=== PATIENT | female | born 1955 | race Caucasian/White ===

== ENCOUNTER → 2016-04-27 | Outpatient (REF) | payer BC | END | disposition home or self-care (01) | LOC: M SFHCPLAZ 14:16 | PROVIDERS: ATTEND Nurse Practitioner Family | DX: R10.9 Unspecified abdominal pain (principal) ==

== ENCOUNTER → 2016-04-27 | Outpatient (CLI) | payer BC ==
[2016-04-27 15:19] LABS: BASO % 0.4 % (0.0-1.0); EOS # 0.5 K/mm3 (0.0-0.50); EOS % 5.8 % (0.0-3.0); LARGE UNSTAINED CELL # 0.3 K/mm3 (0.0-0.4); LARGE UNSTAINED CELL % 2.8 % (0.0-4.0); LYMPH # 2.5 K/mm3 (1.5-4.5); LYMPH % 25.2 % (24.0-44.0); MEAN CORPUSCULAR HGB CONC 33.6 g/dl (32.0-36.5); MEAN CORPUSCULAR VOLUME 98.3 fl (80.0-96.0); MONO # 0.5 K/mm3 (0.0-0.8); MONO % 5.9 % (0.0-5.0); NEUTROPHILS # 5.4 K/mm3 (1.8-7.7); PLATELET COUNT, AUTOMATED 336 k/mm3 (150-450); RED CELL DISTRIBUTION WIDTH 13.1 % (11.5-14.5)
[2016-04-27 15:34] LABS: ALBUMIN 3.5 GM/DL (3.2-5.2); ALBUMIN/GLOBULIN RATIO 0.95 (1.00-1.93); ALKALINE PHOSPHATASE 87 U/L (45-117); ALT/SGPT 34 U/L (12-78); ANION GAP 8 MEQ/L (8-16); AST/SGOT 27 U/L (15-37); BILIRUBIN,TOTAL 0.3 MG/DL (0.2-1.0); BLOOD UREA NITROGEN 21 MG/DL (7-18); CALCIUM LEVEL 9.4 MG/DL (8.5-10.1); CARBON DIOXIDE LEVEL 31 MEQ/L (21-32); CHLORIDE LEVEL 104 MEQ/L (98-107); CREATININE FOR GFR 0.69 MG/DL (0.55-1.02); GLOMERULAR FILTRATION RATE > 60.0 (>51); GLUCOSE, FASTING 96 MG/DL (70-105); POTASSIUM SERUM 4.3 MEQ/L (3.5-5.1); SODIUM LEVEL 143 MEQ/L (136-145); TOTAL PROTEIN 7.2 GM/DL (6.4-8.2)
--- NOTE | 2016-04-27 15:50 | REP ---
Clinical: Right lower quadrant pain. Comparison: None. Technique: Two supine views of the abdomen and pelvis. Findings: 12 mm calcification in the left upper quadrant likely represents nephrolith. Bowel gas pattern is nonspecific. No organomegaly. Skeletal structures demonstrate age-related changes. Impression: 12 mm nonobstructing left renal calculus suggested. Signed by Nigel Sommers MD 04/27/2016 03:41 P
== END ==
LOC: M LAB 14:42
PROVIDERS: ATTEND Nurse Practitioner Family
DX: R10.9 Unspecified abdominal pain (principal)

== ENCOUNTER → 2016-04-29 | Outpatient (CLI) | payer BC ==
--- NOTE | 2016-04-29 08:09 | REP ---
Clinical: Right-sided pain. Findings: Lung bases clear. Visualized heart and pericardium normal. Liver, spleen, pancreas, gallbladder, bilateral adrenal glands and right kidney are normal. Left kidney includes 16 mm nonobstructing calculus in the upper pole. The enteric system is without obstruction or acute inflammatory process. Normal terminal ileum and appendix are identified in the right lower quadrant. Colonic diverticulosis noted without evidence for acute diverticulitis. 2 cm fat containing periumbilical hernia. Pelvis demonstrates normal bladder and the age-appropriate uterus/adnexa. No pelvic fluid or ascites. No intraperitoneal or retroperitoneal adenopathy. No free air. Abdominal aorta without aneurysm. Musculoskeletal structures demonstrate degenerative changes. Impression: 1. 16 mm nonobstructing left renal calculus. The urinary tract system is otherwise unremarkable. II. Colonic diverticulosis without acute diverticulitis. 3. 2 cm fat containing periumbilical hernia. Signed by Nigel Sommers MD 04/29/2016 08:00 A
== END ==
LOC: M RAD 07:13
PROVIDERS: ATTEND Family Medicine
DX: N20.0 Calculus of kidney (principal)

== ENCOUNTER → 2016-05-27 | Outpatient (CLI) | payer BC ==
[~2016-05-27] MED LIST: AMOX875T2 PO; BACT800T5 PO; CITA20TA4 PO; HYDR-3713 PO; HYDR25TAB PO; IBUP200C PO; LISI10TA4 PO; MULT1TAB18 PO
[2016-05-27 14:41] LABS: MEAN CORPUSCULAR HEMOGLOBIN 33.1 pg (27.0-33.0); MEAN CORPUSCULAR VOLUME 97.3 fl (80.0-96.0); RED CELL DISTRIBUTION WIDTH 12.9 % (11.5-14.5); WHITE BLOOD COUNT 9.1 K/mm3 (4.0-10.0)
[2016-05-27 14:52] LABS: INR 0.95
[2016-05-27 15:01] LABS: ANION GAP 7 MEQ/L (8-16); BLOOD UREA NITROGEN 23 MG/DL (7-18); CALCIUM LEVEL 8.9 MG/DL (8.5-10.1); CARBON DIOXIDE LEVEL 32 MEQ/L (21-32); CHLORIDE LEVEL 101 MEQ/L (98-107); CREATININE FOR GFR 0.62 MG/DL (0.55-1.02); GLOMERULAR FILTRATION RATE > 60.0 (>51); GLUCOSE, FASTING 89 MG/DL (70-105); POTASSIUM SERUM 4.4 MEQ/L (3.5-5.1); SODIUM LEVEL 140 MEQ/L (136-145)
== END ==
LOC: M LAB 14:08
PROVIDERS: ATTEND Nurse Practitioner Women's Health
DX: Z01.812 Encounter for preprocedural laboratory examination (principal); N20.0 Calculus of kidney

== ENCOUNTER → 2016-06-02 | Outpatient (REF) | payer BC | LOC: M SMT 12:46 | PROVIDERS: ATTEND Urology | DX: N39.0 Urinary tract infection, site not specified (principal) ==

== ENCOUNTER → 2016-06-03 | Outpatient (CLI) | payer BC ==
[~2016-06-03] VITALS: Ht 170.2 cm; Wt 100.0 kg
[~2016-06-03] MED LIST changes: +ISOVUE-300 61% 50ML VIAL (Q9967) As Ordered ONE; +LIDOCAINE 2% MDV 20 ML VIAL As Ordered ONE; +LR 1,000 ML IV SCH; +METOCLOPRAMIDE INJ 10MG/2ML VIAL (J2765) IV PRN; +MIDAZOLAM INJ 2 MG/2 ML VIAL (J2250) As Ordered ONE; +MORPHINE 2 MG/ML 1ML SYRINGE As Ordered ONE; +MORPHINE 2 MG/ML 1ML SYRINGE IV PRN; +NORCO, ANEXSIA 5/325MG TABLET (HYDROcodone/ACETAMINOPHEN) PO PRN; +ONDANSETRON 4MG/2ML VIAL (J2405) IV PRN; +PERCOCET 5MG/325MG TAB PO PRN; +SODIUM BICARBONATE 8.4% INJ 50MEQ 50 ML VIAL As Ordered ONE; +cefTRIAXone SOD 1 GM VIAL (J0696) As Ordered ONE; +fentaNYL 100 MCG/2 ML INJECTION (J3010) As Ordered ONE; +fentaNYL 100 MCG/2 ML INJECTION (J3010) IV PRN
--- NOTE | 2016-06-03 20:07 | REPKIM ---
CLINICAL HISTORY: Patient presents with a large calyceal kidney stone on the left. The referring urology service has requested a nephroureteral catheter ( stent) placement for preop percutaneous nephrolithotripsy urology procedure. PROCEDURE PERFORMED: 1. Ultrasound left Kidney 2. Percutaneous antegrade Nephrostogram 3. Attempted Percutaneous Nephroureteral catheter (stent) placement INTERVENTIONALIST: Tiffany Landeros MD CONSENT: The risks, benefits and alternatives to the procedure were explained to the patient and informed written consent was obtained. SEDATION: Sedation and analgesia was provided by the Anesthesiology Dept. MEDICATIONS: Rocephin 1gm IV, Local Lidocaine CONTRAST: 107 mL Isovue 300 EBL: 15 mL FLUORO TIME: 81.7 minutes PROCEDURE/FINDINGS: The patient was brought to the interventional radiology suite and placed in the prone position, left flank prepped and draped in the usual sterile fashion. Time out procedure was performed. Ultrasound of the kidney showed a 1.6 cm calyceal stone involving the medial upper pole calyx. No evidence of hydronephrosis. Using ultrasound and fluoroscopy guidance, a 21-gauge Accustick needle/18-gauge Trocar needle was advanced into the targeted upper lower pole calyceal stone, after infiltration of the skin and deep tissues with local anesthetic. Contrast was injected and images were obtained. This showed free antegrade flow of contrast into the urinary bladder. The calyx containing the kidney stone is located in the medial upper pole with the associated infundibulum projecting laterally which is very small in size. Because of overlying lung field and spleen, more upper and medial access could not be obtained. After multiple trials, a hydrophilic guidewire was advanced around the calyceal stone, through the tight infundibulum, renal pelvis into the proximal ureter then into the urinary bladder. Despite multiple attempts using variety of sheaths and dilators, I was not able to advance a catheter over the wire beyond the tight infundibulum. The patient tolerated the procedure well with no immediate complications. This procedure was performed using ultrasound and fluoroscopy. Dr. Landeros was present. IMPRESSION: 1. A 1.6 cm calyceal stone in the medial upper pole of the left kidney associated with very tight/stenotic infundibulum. 2. Nephrostogram demonstrates free antegrade flow of contrast into the urinary bladder. No evidence of hydronephrosis. 3. Unsuccessful NU placement. A guidewire successfully advanced into the urinary bladder via the calyceal stone, however I could not advance a NU catheter (not even a 4F catheter) because of difficult angulation and tight infundibulum. Findings discussed via phone with Dr. Gonzales at the completion of this study. Due to extensive instrumentations, patient was put on prophylactic antibiotics for 5 days. cc: Ely Daniels, ADIN Gonzales MD [facility] HOSPITALJeffrey
[2016-06-03 21:00] VITALS: BP 124/71
== END | disposition home or self-care (01) ==
LOC: M IRPRO 11:34
PROVIDERS: ATTEND Urology
DX: N20.0 Calculus of kidney (principal); Z53.8 Procedure and treatment not carried out for other reasons
CPT/HCPCS: 50433; C1729; C1769; C1887; C1894; J0696; J2250; J3010; Q9967

== ENCOUNTER → 2016-06-04 | Outpatient (CLI) | payer BC ==
[~2016-06-04] MED LIST changes: -ISOVUE-300 61% 50ML VIAL (Q9967) As Ordered ONE; -LIDOCAINE 2% MDV 20 ML VIAL As Ordered ONE; -LR 1,000 ML IV SCH; -METOCLOPRAMIDE INJ 10MG/2ML VIAL (J2765) IV PRN; -MIDAZOLAM INJ 2 MG/2 ML VIAL (J2250) As Ordered ONE; -MORPHINE 2 MG/ML 1ML SYRINGE As Ordered ONE; -MORPHINE 2 MG/ML 1ML SYRINGE IV PRN; -NORCO, ANEXSIA 5/325MG TABLET (HYDROcodone/ACETAMINOPHEN) PO PRN; -ONDANSETRON 4MG/2ML VIAL (J2405) IV PRN; -PERCOCET 5MG/325MG TAB PO PRN; -SODIUM BICARBONATE 8.4% INJ 50MEQ 50 ML VIAL As Ordered ONE; -cefTRIAXone SOD 1 GM VIAL (J0696) As Ordered ONE; -fentaNYL 100 MCG/2 ML INJECTION (J3010) As Ordered ONE; -fentaNYL 100 MCG/2 ML INJECTION (J3010) IV PRN
--- NOTE | 2016-06-04 22:23 | ECGEPIP ---
Stationary ECG Study [facility] Test Date: 2016-06-04 Pat Name: PREMA OSEGUERA Department: Room: - Gender: F Water System Operator: LUCY : 1955 Requested By: Ely VELASQUEZ Order Number: [id number] Reading MD: Yohannes Delacruz Measurements Intervals Spring Rate: 70 P: 59 VT: 183 QRS: 68 QRSD: 101 T: 43 QT: 392 QTc: 425 Interpretive Statements SINUS RHYTHM NO PRIOR Electronically Signed On 06-04-2016 22:23:18 EDT by Yohannes Delacruz
== END ==
LOC: M EKG 14:23
PROVIDERS: ATTEND Nurse Practitioner Women's Health
DX: Z01.818 Encounter for other preprocedural examination (principal); N20.0 Calculus of kidney

== ENCOUNTER → 2016-06-05 | Day surgery (SDC) | payer BC ==
[~2016-06-05] VITALS: Ht 170.2 cm; Wt 99.0 kg
[~2016-06-05] MED LIST changes: +ALBUTEROL 6.7GM INHALER **FOR ANES. CART/OMNICELL ONLY As Ordered ONE; +CONRAY-60 60% 50ML VIAL (Q9961) As Ordered ONE; +HYDROmorphone HCL 2 MG/ML 1ML VIAL (J1170) As Ordered ONE; +LIDOCAINE 2% INJ 100 MG/5 ML SDV (FOR ANES.) As Ordered ONE; +LR 1,000 ML IV SCH; +MIDAZOLAM INJ 2 MG/2 ML VIAL (J2250) As Ordered ONE; +NORCO, ANEXSIA 5/325MG TABLET (HYDROcodone/ACETAMINOPHEN) As Ordered ONE; +NORCO, ANEXSIA 5/325MG TABLET (HYDROcodone/ACETAMINOPHEN) PO PRN; +ONDANSETRON 4MG/2ML VIAL (J2405) As Ordered ONE; +ONDANSETRON 4MG/2ML VIAL (J2405) IV PRN; +PERCOCET 5MG/325MG TAB PO PRN; +PHENYLephrine HCL 500 MCG/5 ML (100MCG/ML) SYRINGE (J2370) As Ordered ONE; +PROPOFOL 200 MG/20 ML VIAL As Ordered ONE; +ROCURONIUM BROMIDE 50 MG/5 ML VIAL As Ordered ONE; +dexameTHASONE 4 MG/ML 1ML VIAL (J1100) As Ordered ONE; +ePHEDrine SULFATE 25 MG/5 ML(5MG/ML) SYRINGE As Ordered ONE; +fentaNYL 100 MCG/2 ML INJECTION (J3010) As Ordered ONE; +fentaNYL 100 MCG/2 ML INJECTION (J3010) IV PRN; +oxyBUTYnin 5 MG TAB PO PRN
--- NOTE | 2016-06-05 17:12 | REP ---
C-ARM VIEWS DURING RETROGRADE PYELOGRAM: Three C-Arm views are performed. Contrast is injected into the left pelvicalyceal system with a catheter and wire in the left ureter. A left ureteral stent is placed with the proximal end coiled in the region of the left renal pelvis and the distal end coiled in the region of the urinary bladder. 26 seconds of fluoroscopy time utilized. Unreviewed
[2016-06-05 18:20] VITALS: BP 124/94
--- NOTE | 2016-06-05 20:10 | RO ---
DATE OF PROCEDURE: 06/05/2016 PREPROCEDURE DIAGNOSIS: Left kidney stone. POSTPROCEDURE DIAGNOSIS: Left kidney stone. OPERATIVE PROCEDURE: Cystoscopy, left uroscopy with laser lithotripsy and basket extraction of stones, left retrograde pyelogram with intraoperative interpretation of images, left ureteral stent placement. SURGEON: Andrea Gonzales MD SAFETY COORDINATOR: None. ANESTHESIA: General. OPERATIVE INDICATIONS: This is a 61-year-old female who was found to have a 1.4 cm left kidney stone. It was planned to bring her to the operating room for percutaneous nephrolithotomy, but during that attempted nephroureteral stent placement a few days ago they were unable to get access into the kidney due to a narrow infundibulum. So she was therefore brought to the operating room today for the above listed procedures. DESCRIPTION OF PROCEDURE: The patient was brought to the operating room and general anesthesia was induced. Prophylactic antibiotics were infused. She was then placed in the dorsal lithotomy position and prepped and draped in the usual sterile fashion. A rigid cystoscope was then inserted into the urethral meatus and advanced into the bladder. Once within the bladder, a wire was advanced up the left collecting system. The cystoscope was then removed and the wire was utilized to advance a ureteral access sheath up into the left collecting system. The stylet was then removed and the wire was secured to the drape to serve as a safety wire. I then went up the ureteral access sheath with a flexible ureteroscope and within an upper calyx, the large stone was seen. Of note the infundibulum leading to this calyx was stenotic. I did dilate that infundibulum a little bit by passing the scope through it. At this point, the stone was fragmented into several smaller pieces using a 200 Micron laser fiber. All of the larger fragments were then removed using a basket. Once I was satisfied that all the large fragments had been removed, I examined the remainder of the kidney and no large stone fragments were seen. At this point, a retrograde pyelogram was performed and notable for mild left hydronephrosis with no extravasation. At this point, the ureteral access sheath was removed along with the ureteroscope and no additional stones were seen within the ureter. I then utilized the previously placed wire to advance a #7-Frisian x 22-32 cm JJ ureteral stent up into the left collecting system. The wire was then removed and there were adequate curls of the stent in the left renal pelvis and in the bladder. The bladder was emptied of all fluid and this marked the conclusion of the procedure. The patient was then taken out of the dorsal lithotomy position, awakened from anesthesia and transported to the recovery room in stable condition. ESTIMATED BLOOD LOSS: 0 mL. COMPLICATIONS: None. SPECIMENS: Left kidney stone fragments. PLAN: The patient will be discharged home. She will followup in clinic in a week or two for stent removal. JED
== END ==
LOC: M SDC 11:17 → EDSTATUS 13:30
PROVIDERS: ATTEND Urology
DX: N20.0 Calculus of kidney (principal); I10 Essential (primary) hypertension; K21.9 Gastro-esophageal reflux disease without esophagitis; M19.90 Unspecified osteoarthritis, unspecified site; F41.9 Anxiety disorder, unspecified; F32.9 Major depressive disorder, single episode, unspecified; Z78.0 Asymptomatic menopausal state; Z79.899 Other long term (current) drug therapy; Z79.2 Long term (current) use of antibiotics; F17.210 Nicotine dependence, cigarettes, uncomplicated
CPT/HCPCS: 52352; 52356; 76000; 82360; 88300; C2617; J0690; J1100; J1170; J2250; J2370; J2405; J3010; Q9961

== ENCOUNTER 2017-05-07 07:53 | Emergency (ER) | payer BC ==
[2017-05-07 08:51] LABS: AMORPHOUS SEDIMENT RFX SMALL (NEGATIVE); KETONE, URINE AUTO RFX NEGATIVE (NEGATIVE); NITRITE, URINE AUTO RFX NEGATIVE (NEGATIVE); RBC, URINE AUTO RFX 19 /HPF (0-3); SPECIFIC GRAVITY UR AUTO RFX 1.015 (1.002-1.035); SQUAM EPITHELIAL CELL UR AURFX 2 /HPF (0-6)
[2017-05-07 08:52] LABS: LEUKOCYTE ESTERASE UR AUTO RFX 2+ (NEGATIVE); WBC, URINE AUTO RFX 22 /HPF (0-3)
[2017-05-07] MEDS: KETOROLAC 60 MG/2 ML VIAL (J1885) IM (11:02)
== END 2017-05-07 11:31 | disposition home or self-care (01) ==
LOC: M ED 07:53
DX: M54.40 Lumbago with sciatica, unspecified side (principal); I10 Essential (primary) hypertension; E11.9 Type 2 diabetes mellitus without complications; K21.9 Gastro-esophageal reflux disease without esophagitis; F33.9 Major depressive disorder, recurrent, unspecified; F41.9 Anxiety disorder, unspecified; Z79.899 Other long term (current) drug therapy; Z87.442 Personal history of urinary calculi; Z86.39 Personal history of other endocrine, nutritional and metabolic disease; Z98.890 Other specified postprocedural states
CPT/HCPCS: J1885

== ENCOUNTER → 2017-08-13 | Outpatient (CLI) | payer BC ==
[2017-08-13 13:45] LABS: ANION GAP 7 MEQ/L (8-16); BLOOD UREA NITROGEN 21 MG/DL (7-18); CARBON DIOXIDE LEVEL 31 MEQ/L (21-32); CHLORIDE LEVEL 103 MEQ/L (98-107); CREATININE FOR GFR 0.58 MG/DL (0.55-1.30); GLOMERULAR FILTRATION RATE > 60.0 (>45); GLUCOSE, FASTING 95 MG/DL (70-100); POTASSIUM SERUM 4.3 MEQ/L (3.5-5.1); SODIUM LEVEL 141 MEQ/L (136-145)
== END ==
LOC: M WUC 09:42
DX: I10 Essential (primary) hypertension (principal)

== ENCOUNTER → 2018-05-02 | Outpatient (REF) | payer BC ==
[~2018-05-02] MED LIST changes: -ALBUTEROL 6.7GM INHALER **FOR ANES. CART/OMNICELL ONLY As Ordered ONE; -CONRAY-60 60% 50ML VIAL (Q9961) As Ordered ONE; -HYDROmorphone HCL 2 MG/ML 1ML VIAL (J1170) As Ordered ONE; -IBUP200C PO; +IBUP200C25 PO; -LIDOCAINE 2% INJ 100 MG/5 ML SDV (FOR ANES.) As Ordered ONE; -LR 1,000 ML IV SCH; -MIDAZOLAM INJ 2 MG/2 ML VIAL (J2250) As Ordered ONE; +NAPR-50 PO; -NORCO, ANEXSIA 5/325MG TABLET (HYDROcodone/ACETAMINOPHEN) As Ordered ONE; -NORCO, ANEXSIA 5/325MG TABLET (HYDROcodone/ACETAMINOPHEN) PO PRN; -ONDANSETRON 4MG/2ML VIAL (J2405) As Ordered ONE; -ONDANSETRON 4MG/2ML VIAL (J2405) IV PRN; -PERCOCET 5MG/325MG TAB PO PRN; -PHENYLephrine HCL 500 MCG/5 ML (100MCG/ML) SYRINGE (J2370) As Ordered ONE; -PROPOFOL 200 MG/20 ML VIAL As Ordered ONE; -ROCURONIUM BROMIDE 50 MG/5 ML VIAL As Ordered ONE; -dexameTHASONE 4 MG/ML 1ML VIAL (J1100) As Ordered ONE; -ePHEDrine SULFATE 25 MG/5 ML(5MG/ML) SYRINGE As Ordered ONE; -fentaNYL 100 MCG/2 ML INJECTION (J3010) As Ordered ONE; -fentaNYL 100 MCG/2 ML INJECTION (J3010) IV PRN; -oxyBUTYnin 5 MG TAB PO PRN
[2018-05-02 12:06] LABS: ALBUMIN 3.8 GM/DL (3.2-5.2); ALT/SGPT 32 U/L (12-78); BILIRUBIN,TOTAL 0.4 MG/DL (0.2-1.0); BLOOD UREA NITROGEN 26 MG/DL (7-18); CALCIUM LEVEL 9.3 MG/DL (8.8-10.2); CARBON DIOXIDE LEVEL 31 MEQ/L (21-32); CHLORIDE LEVEL 103 MEQ/L (98-107); CHOLESTEROL LEVEL 253 MG/DL (<200); CHOLESTEROL RISK RATIO 4.015 (<5); CREATININE FOR GFR 0.66 MG/DL (0.55-1.30); GLOMERULAR FILTRATION RATE > 60.0 (>45); GLUCOSE, FASTING 106 MG/DL (70-100); HDL CHOLESTEROL 63 MG/DL (>40); LDL CHOLESTEROL 152 MG/DL (<100); NON-HDL-C 190 MG/DL; POTASSIUM SERUM 4.8 MEQ/L (3.5-5.1); SODIUM LEVEL 139 MEQ/L (136-145); TOTAL PROTEIN 7.5 GM/DL (6.4-8.2); TRIGLYCERIDES LEVEL 192 MG/DL (<150)
== END ==
LOC: M SFHCPLAZ 11:08
PROVIDERS: ATTEND Nurse Practitioner Family
DX: Z00.00 Encounter for general adult medical examination without abnormal findings (principal); Z13.220 Encounter for screening for lipoid disorders; F32.9 Major depressive disorder, single episode, unspecified; I10 Essential (primary) hypertension

== ENCOUNTER → 2019-05-17 | Outpatient (REF) | payer OTHER ==
[~2019-05-17] MED LIST changes: -CITA20TA4 PO; +CITA20TA6 PO; -NAPR-50 PO; +NAPR-837 PO
== END ==
LOC: M SFHCPLAZ 17:01
PROVIDERS: ATTEND Nurse Practitioner Women's Health
DX: Z12.4 Encounter for screening for malignant neoplasm of cervix (principal)

== ENCOUNTER → 2019-05-17 | Outpatient (CLI) | payer OTHER ==
--- NOTE | 2019-05-17 16:09 | REPMRS ---
Patient History The patient states she had a clinical breast exam in May 2019. Family history of breast cancer at age 50 or over in maternal grandmother. Digital Woman Screen Mammo: May 17, 2019 - Exam #: [id number] Bilateral CC and MLO view(s) were taken. Technologist: Becca Roque, Technologist Prior study comparison: June 14, 2013, digital woman screen mammo performed at [facility]. FINDINGS: There are scattered fibroglandular densities. There has been no change in the appearance of the mammogram from the prior studies. There is a mild amount of scattered fibroglandular density which is fairly symmetric. There is no interval development of dominant mass, architectural distortion, or grouped microcalcification suggestive of malignancy. 3-D tomosynthesis shows no additional findings. Assessment: BI-RADS/ACR category 1 mammogram. Negative Mammogram. Recommendation Routine screening mammogram of both breasts in 1 year (for women over age 40). This patient's Lifetime Breast Cancer Risk is estimated at 8.8 %. This mammogram was interpreted with the aid of an FDA-approved computer-aided dectection system. Electronically Signed By: Shun Garcia MD 05/17/19 [id number]
== END ==
LOC: M WHC 13:07
PROVIDERS: ATTEND Physician Assistant
DX: Z12.31 Encounter for screening mammogram for malignant neoplasm of breast (principal)

== ENCOUNTER → 2019-05-17 | Outpatient (REF) | payer OTHER | LOC: M PLALAB 07:31 | PROVIDERS: ATTEND Nurse Practitioner Women's Health | DX: Z12.4 Encounter for screening for malignant neoplasm of cervix (principal) ==

== ENCOUNTER → 2019-05-17 | Outpatient (CLI) | payer OTHER | LOC: M PLALAB 13:56 | PROVIDERS: ATTEND Nurse Practitioner Women's Health | DX: Z12.31 Encounter for screening mammogram for malignant neoplasm of breast (principal) ==

== ENCOUNTER → 2020-03-01 | Outpatient (REF) | payer OTHER ==
[2020-03-01 13:28] LABS: ALBUMIN 3.7 GM/DL (3.2-5.2); ALT/SGPT 43 U/L (12-78); BILIRUBIN,TOTAL 0.8 MG/DL (0.2-1.0); BLOOD UREA NITROGEN 18 MG/DL (7-18); CALCIUM LEVEL 9.2 MG/DL (8.8-10.2); CARBON DIOXIDE LEVEL 29 MEQ/L (21-32); CHLORIDE LEVEL 101 MEQ/L (98-107); CHOLESTEROL LEVEL 177 MG/DL (<200); CHOLESTEROL RISK RATIO 3.105 (<5); CREATININE FOR GFR 0.72 MG/DL (0.55-1.30); GLOMERULAR FILTRATION RATE > 60.0 (>45); GLUCOSE, FASTING 123 MG/DL (70-100); HDL CHOLESTEROL 57 MG/DL (>40); LDL CHOLESTEROL 91 MG/DL (<100); NON-HDL-C 120 MG/DL; POTASSIUM SERUM 4.1 MEQ/L (3.5-5.1); SODIUM LEVEL 137 MEQ/L (136-145); TOTAL PROTEIN 7.7 GM/DL (6.4-8.2); TRIGLYCERIDES LEVEL 146 MG/DL (<150)
[2020-03-01 13:29] LABS: HEMOGLOBIN A1c 5.5 %
== END ==
LOC: M PLALAB 09:30
PROVIDERS: ATTEND Physician Assistant
DX: I10 Essential (primary) hypertension (principal); R73.01 Impaired fasting glucose; E78.2 Mixed hyperlipidemia; E55.9 Vitamin D deficiency, unspecified

== ENCOUNTER → 2021-08-25 | Outpatient (REF) | payer OTHER ==
[~2021-08-25] MED LIST changes: +HYDR-3490 PO; -HYDR25TAB PO; +LISI10TA22 PO; -LISI10TA4 PO
[2021-08-25 18:03] LABS: AMORPHOUS SEDIMENT MODERATE (NEGATIVE); APPEARANCE, URINE TURBID (CLEAR); BACTERIA, URINE AUTO 3+ (NEGATIVE); BILIRUBIN, URINE AUTO NEGATIVE (NEGATIVE); BLOOD, URINE BLOOD NEGATIVE (NEGATIVE); COLOR, URINE AMBER (YELLOW); GLUCOSE, URINE (UA) AUTO NEGATIVE (NEGATIVE); KETONE, URINE AUTO TRACE mg/dL (NEGATIVE); LEUKOCYTE ESTERASE, URINE AUTO 3+ (NEGATIVE); MUCUS, URINE LARGE (NEGATIVE); NITRITE, URINE AUTO NEGATIVE (NEGATIVE); PROTEIN, URINE AUTO 2+ mg/dL (NEGATIVE); RBC, URINE AUTO 3 /HPF (0-3); SPECIFIC GRAVITY URINE AUTO 1.028 (1.002-1.035); SQUAMOUS EPITHELIAL CELL UR AU 46 /HPF (0-6); UROBILINOGEN, URINE AUTO 0.2 mg/dL (0.0-2.0); WBC, URINE AUTO 68 /HPF (0-3)
== END ==
LOC: M SFHCPLAZ 16:43
PROVIDERS: ATTEND Nurse Practitioner Family
DX: N39.0 Urinary tract infection, site not specified (principal)

== ENCOUNTER → 2021-11-11 | Outpatient (REF) | payer OTHER ==
[2021-11-11 15:20] LABS: APPEARANCE, URINE MANUAL CLOUDY (CLEAR); COLOR, URINE MANUAL YELLOW (YELLOW)
[2021-11-11 15:22] LABS: BILIRUBIN, URINE MANUAL NEGATIVE (NEGATIVE); BLOOD URINE MANUAL POSITIVE (NEGATIVE); GLUCOSE, URINE (UA) MANUAL NEGATIVE (NEGATIVE); KETONE, URINE MANUAL NEGATIVE (NEGATIVE); LEUKOCYTE ESTERASE, URINE MAN POSITIVE (NEGATIVE); NITRITE, URINE MANUAL NEGATIVE (NEGATIVE); PROTEIN, URINE MANUAL 1+ mg/dL (NEGATIVE); UROBILINOGEN, URINE MANUAL NORMAL (NORMAL)
[2021-11-11 15:27] LABS: BACTERIA, URINE LARGE AMOUNT; HYALINE CAST, URINE NONE SEEN /lpf (0-1); SQUAMOUS EPITHELIAL CELL URINE MOD AMOUNT /hpf (SMALL AMT); WBC, URINE TNTC /hpf (0-3)
== END ==
LOC: M SFHCPLAZ 15:00
PROVIDERS: ATTEND Nurse Practitioner Family
DX: N39.0 Urinary tract infection, site not specified (principal)

== ENCOUNTER → 2021-11-20 | Outpatient (CLI) | payer OTHER ==
[2021-11-20 14:15] LABS: BASO # 0.1 10^3/uL (0.0-0.2); BASO % 0.7 % (0.0-1.0); EOS # 0.6 10^3/uL (0.0-0.5); EOS % 6.6 % (0.0-3.0); HEMATOCRIT 44.5 % (36.0-47.0); HEMOGLOBIN 14.6 g/dl (12.0-15.5); LYMPH % 21.7 % (24.0-44.0); MEAN CORPUSCULAR HEMOGLOBIN 31.4 pg (27.0-33.0); MEAN CORPUSCULAR HGB CONC 32.8 g/dl (32.0-36.5); MEAN CORPUSCULAR VOLUME 95.7 fl (80.0-96.0); MONO # 0.6 10^3/uL (0.0-0.8); NEUTROPHILS # 5.9 10^3/uL (1.5-8.5); NEUTROPHILS % 64.6 % (36.0-66.0); PLATELET COUNT, AUTOMATED 354 10^3/uL (150-450); RED BLOOD COUNT 4.65 10^6/uL (4.00-5.40); WHITE BLOOD COUNT 9.2 10^3/uL (4.0-10.0)
[2021-11-20 14:43] LABS: HEMOGLOBIN A1c 5.8 %
[2021-11-20 14:57] LABS: ALT/SGPT 26 U/L (12-78); BILIRUBIN,TOTAL 0.6 MG/DL (0.2-1.0); BLOOD UREA NITROGEN 19 MG/DL (7-18); CARBON DIOXIDE LEVEL 30 MEQ/L (21-32); CHLORIDE LEVEL 103 MEQ/L (98-107); CHOLESTEROL LEVEL 187 MG/DL (<200); CHOLESTEROL RISK RATIO 2.633 (<5); CREATININE FOR GFR 0.68 MG/DL (0.55-1.30); GLOMERULAR FILTRATION RATE > 60.0 (>45); GLUCOSE, FASTING 95 MG/DL (70-100); HDL CHOLESTEROL 71 MG/DL (>40); LDL CHOLESTEROL 86 MG/DL (<100); NON-HDL-C 116 MG/DL; POTASSIUM SERUM 4.2 MEQ/L (3.5-5.1); SODIUM LEVEL 137 MEQ/L (136-145); TOTAL PROTEIN 8.1 GM/DL (6.4-8.2); TRIGLYCERIDES LEVEL 152 MG/DL (<150)
[2021-11-20 15:16] LABS: TOTAL 25(OH) VITAMIN D 46.6 NG/ML (30.0-100.0)
== END ==
LOC: M LAB 13:14
PROVIDERS: ATTEND Nurse Practitioner Family
DX: E55.9 Vitamin D deficiency, unspecified (principal)

== ENCOUNTER → 2021-12-09 | Outpatient (REF) | payer OTHER ==
[2021-12-09 17:22] LABS: APPEARANCE, URINE MANUAL HAZY (CLEAR); BILIRUBIN, URINE MANUAL NEGATIVE (NEGATIVE); BLOOD URINE MANUAL NEGATIVE (NEGATIVE); COLOR, URINE MANUAL YELLOW (YELLOW); GLUCOSE, URINE (UA) MANUAL NEGATIVE (NEGATIVE); KETONE, URINE MANUAL NEGATIVE (NEGATIVE); LEUKOCYTE ESTERASE, URINE MAN POSITIVE (NEGATIVE); NITRITE, URINE MANUAL NEGATIVE (NEGATIVE); PROTEIN, URINE MANUAL NEGATIVE (NEGATIVE); SPECIFIC GRAVITY,URINE MANUAL 1.015 (1.002-1.035); UROBILINOGEN, URINE MANUAL NORMAL (NORMAL)
[2021-12-09 17:52] LABS: BACTERIA, URINE LARGE AMOUNT; SQUAMOUS EPITHELIAL CELL URINE MOD AMOUNT /hpf (SMALL AMT); WBC, URINE 30-40 /hpf (0-3)
== END ==
LOC: M LAB REF 16:36
PROVIDERS: ATTEND Physician Assistant Medical
DX: N39.0 Urinary tract infection, site not specified (principal)

== ENCOUNTER → 2022-02-17 | Outpatient (CLI) | payer OTHER ==
[2022-02-17 17:07] LABS: BASO # 0.1 10^3/uL (0.0-0.2); BASO % 0.6 % (0.0-1.0); EOS # 0.7 10^3/uL (0.0-0.5); EOS % 8.6 % (0.0-3.0); HEMATOCRIT 42.8 % (36.0-47.0); HEMOGLOBIN 13.6 g/dl (12.0-15.5); LYMPH % 24.7 % (24.0-44.0); MEAN CORPUSCULAR HEMOGLOBIN 30.8 pg (27.0-33.0); MEAN CORPUSCULAR HGB CONC 31.8 g/dl (32.0-36.5); MEAN CORPUSCULAR VOLUME 96.8 fl (80.0-96.0); MONO # 0.6 10^3/uL (0.0-0.8); MONO % 7.2 % (2.0-8.0); NEUTROPHILS # 4.8 10^3/uL (1.5-8.5); NEUTROPHILS % 58.7 % (36.0-66.0); PLATELET COUNT, AUTOMATED 393 10^3/uL (150-450); RED BLOOD COUNT 4.42 10^6/uL (4.00-5.40); WHITE BLOOD COUNT 8.1 10^3/uL (4.0-10.0)
[2022-02-17 18:11] LABS: CPK CREATINE PHOSPHOKINASE 49 U/L (34-145)
[2022-02-17 18:12] LABS: ALBUMIN 3.7 G/DL (3.2-5.2); ALKALINE PHOSPHATASE 94 U/L (46-116); ALT/SGPT 33 U/L (7.0-40); AST/SGOT 21 U/L (<34); BILIRUBIN,TOTAL 0.3 MG/DL (0.3-1.2); BLOOD UREA NITROGEN 23 MG/DL (9-23); CALCIUM LEVEL 9.2 MG/DL (8.3-10.6); CARBON DIOXIDE LEVEL 29 MMOL/L (20-31); CHLORIDE LEVEL 98 MMOL/L (98-107); CHOLESTEROL LEVEL 202 MG/DL (<200); CHOLESTEROL RISK RATIO 3.39 (<5); CK-MB VALUE MASS < 1.0 NG/ML (<3.6); CREATININE FOR GFR 0.56 MG/DL (0.55-1.30); FREE T4 0.85 NG/DL (0.89-1.76); GLOMERULAR FILTRATION RATE > 60.0 (>45); GLUCOSE, FASTING 99 MG/DL (74-106); HDL CHOLESTEROL 59.5 MG/DL (>40); LDL CHOLESTEROL 96.7 MG/DL (<100); MB/CK RELATIVE INDEX 2.04 (< OR =4); NON-HDL-C 143 MG/DL; SODIUM LEVEL 137 MMOL/L (136-145); TOTAL 25(OH) VITAMIN D 46.9 NG/ML (20.0-100.0); TOTAL PROTEIN 7.5 G/DL (5.7-8.2); TRIGLYCERIDES LEVEL 229 MG/DL (<150)
== END ==
LOC: M PLALAB 15:06
PROVIDERS: ATTEND Nurse Practitioner Family
DX: R00.2 Palpitations (principal)

== ENCOUNTER 2022-03-02 12:50 | Day surgery (SDC) | payer OTHER ==
[~2022-03-02] VITALS: Ht 170.2 cm; Wt 99.1 kg
[2022-03-02] MEDS ORDERED: GLUCAGON INJ 1MG VIAL IV STA (14:36)
[2022-03-02 15:11] LABS: BASO % 0.5 % (0.0-1.0); EOS # 0.4 10^3/uL (0.0-0.5); EOS % 4.6 % (0.0-3.0); HEMATOCRIT 42.4 % (36.0-47.0); HEMOGLOBIN 13.8 g/dl (12.0-15.5); LYMPH # 1.6 10^3/uL (1.5-5.0); LYMPH % 20.6 % (24.0-44.0); MEAN CORPUSCULAR HEMOGLOBIN 31.1 pg (27.0-33.0); MEAN CORPUSCULAR HGB CONC 32.5 g/dl (32.0-36.5); MEAN CORPUSCULAR VOLUME 95.5 fl (80.0-96.0); MONO # 0.5 10^3/uL (0.0-0.8); MONO % 6.4 % (2.0-8.0); NEUTROPHILS # 5.4 10^3/uL (1.5-8.5); NEUTROPHILS % 67.6 % (36.0-66.0); PLATELET COUNT, AUTOMATED 380 10^3/uL (150-450); RED BLOOD COUNT 4.44 10^6/uL (4.00-5.40)
[2022-03-02] MEDS ORDERED: ATOR1TAB21 PO (15:19)
[2022-03-02] MEDS ORDERED: CITA40TA7 PO (15:19)
[2022-03-02] MEDS ORDERED: LOSA25TA13 PO (15:19)
[2022-03-02 15:40] LABS: BLOOD UREA NITROGEN 14 MG/DL (9-23); CALCIUM LEVEL 8.8 MG/DL (8.3-10.6); CARBON DIOXIDE LEVEL 26 MMOL/L (20-31); CHLORIDE LEVEL 101 MMOL/L (98-107); CREATININE FOR GFR 0.53 MG/DL (0.55-1.30); GLOMERULAR FILTRATION RATE > 60.0 (>45); GLUCOSE, FASTING 98 MG/DL (74-106); POTASSIUM SERUM 4.1 MMOL/L (3.5-5.1); SODIUM LEVEL 136 MMOL/L (136-145)
[2022-03-02] MEDS ORDERED: NS 1,000 ML IV SCH (16:30)
[2022-03-02 17:30] LABS: RSV AMPLIFICATION NEGATIVE (NEGATIVE)
[2022-03-02] MEDS ORDERED: D31000TA PO (19:13)
[2022-03-02] MEDS ORDERED: IBUP80TA PO (19:13)
[2022-03-02] MEDS ORDERED: HOME MED LIST COMPLETE! XX SCH (19:15)
[2022-03-02] MEDS ORDERED: LR 1,000 ML IV SCH (21:05)
[2022-03-02] MEDS ORDERED: ONDANSETRON 4MG 2ML VIAL IV PRN (21:05)
[2022-03-02] MEDS ORDERED: fentaNYL 100 MCG/2 ML INJECTION IV PRN (21:05)
[2022-03-02] MEDS ORDERED: MORPHINE 2 MG/ML 1ML VIAL IV PRN (21:05)
[2022-03-02] MEDS ORDERED: oxyCODONE 5MG TAB PO PRN (21:05)
[2022-03-02] MEDS ORDERED: LIDOCAINE 2% 100MG/5ML SDV (FOR ANES.) As Ordered ONE (21:09)
[2022-03-02] MEDS ORDERED: fentaNYL 100 MCG/2 ML INJECTION As Ordered ONE (21:09)
[2022-03-02] MEDS ORDERED: MIDAZOLAM INJ 2MG/2ML VIAL (J2250 PER 1MG) As Ordered ONE (21:09)
[2022-03-02] MEDS ORDERED: propofoL 200 MG/20 ML VIAL As Ordered ONE (21:09)
[2022-03-02] MEDS ORDERED: ONDANSETRON 4MG 2ML VIAL As Ordered ONE (21:09)
[2022-03-02] MEDS ORDERED: SUCCINYLCHOLINE 100MG/5ML SYRINGE As Ordered ONE (21:10)
[2022-03-02 21:40] VITALS: BP 149/72
== END 2022-03-02 21:52 | disposition home or self-care (01) ==
LOC: M ED 12:50 → M SDC 18:55 → M ED 21:52
PROVIDERS: ATTEND Surgery
DX: T18.128A Food in esophagus causing other injury, initial encounter (principal); Y92.89 Other specified places as the place of occurrence of the external cause; K22.2 Esophageal obstruction; K29.51 Unspecified chronic gastritis with bleeding; I10 Essential (primary) hypertension; F32.A Depression, unspecified; E78.5 Hyperlipidemia, unspecified; F41.9 Anxiety disorder, unspecified; F17.200 Nicotine dependence, unspecified, uncomplicated; Z79.899 Other long term (current) drug therapy
CPT/HCPCS: 43247; 80048; 85025; 87631; 96361; 96374; 99284; J0330; J1100; J1610; J2250; J2405; J3010

== ENCOUNTER 2022-03-07 01:23 | Inpatient (IN) | payer MEDICARE, OTHER ==
[~2022-03-07] VITALS: Ht 167.6 cm; Wt 111.2 kg
[~2022-03-07 01:23] MED LIST changes: +ATOR1TAB21 PO; +CITA40TA7 PO; +D31000TA PO; +IBUP80TA PO; +LOSA25TA13 PO
[2022-03-07 01:35] LABS: BASO % 0.4 % (0.0-1.0); EOS # 0.4 10^3/uL (0.0-0.5); EOS % 4.5 % (0.0-3.0); HEMATOCRIT 41.4 % (36.0-47.0); HEMOGLOBIN 13.6 g/dl (12.0-15.5); LYMPH # 2.9 10^3/uL (1.5-5.0); LYMPH % 29.7 % (24.0-44.0); MEAN CORPUSCULAR HEMOGLOBIN 31.4 pg (27.0-33.0); MEAN CORPUSCULAR HGB CONC 32.9 g/dl (32.0-36.5); MEAN CORPUSCULAR VOLUME 95.6 fl (80.0-96.0); MONO # 0.7 10^3/uL (0.0-0.8); MONO % 7.1 % (2.0-8.0); NEUTROPHILS # 5.6 10^3/uL (1.5-8.5); NEUTROPHILS % 57.4 % (36.0-66.0); PLATELET COUNT, AUTOMATED 361 10^3/uL (150-450); RED BLOOD COUNT 4.33 10^6/uL (4.00-5.40); WHITE BLOOD COUNT 9.8 10^3/uL (4.0-10.0)
[2022-03-07] MEDS ORDERED: METOPROLOL 5 MG/5 ML VIAL IV SCH (02:00)
[2022-03-07 02:04] LABS: ETHYL ALCOHOL (ETHANOL) 0.003 % (0.000-0.010)
[2022-03-07 02:05] LABS: BILIRUBIN,DIRECT 0.1 MG/DL (<0.4)
[2022-03-07] MEDS ORDERED: atenoloL 25 MG TAB PO ONE (02:05)
[2022-03-07 02:06] LABS: ALBUMIN 3.5 G/DL (3.2-5.2); ALKALINE PHOSPHATASE 96 U/L (46-116); ALT/SGPT 30 U/L (7.0-40); AST/SGOT 22 U/L (<34); BILIRUBIN,TOTAL 0.4 MG/DL (0.3-1.2); BLOOD UREA NITROGEN 19 MG/DL (9-23); CALCIUM LEVEL 9.3 MG/DL (8.3-10.6); CARBON DIOXIDE LEVEL 22 MMOL/L (20-31); CHLORIDE LEVEL 99 MMOL/L (98-107); CK-MB VALUE MASS < 1.0 NG/ML (<3.6); CREATININE FOR GFR 0.65 MG/DL (0.55-1.30); GLOMERULAR FILTRATION RATE > 60.0 (>45); GLUCOSE, FASTING 168 MG/DL (74-106); POTASSIUM SERUM 3.9 MMOL/L (3.5-5.1); SODIUM LEVEL 134 MMOL/L (136-145); TOTAL PROTEIN 7.2 G/DL (5.7-8.2)
[2022-03-07 02:08] LABS: THYROID STIMULATING HORMONE 4.543 uIU/ML (0.55-4.78)
[2022-03-07] MEDS ORDERED: NS 500 ML IV ONE (02:10)
[2022-03-07 02:17] LABS: CPK CREATINE PHOSPHOKINASE 29 U/L (34-145); MB/CK RELATIVE INDEX 3.44 (< OR =4)
[2022-03-07 02:39] LABS: AMPHETAMINES LEVEL URINE NEGATIVE (NEGATIVE); BARBITURATES URINE NEGATIVE (NEGATIVE); BENZODIAZEPINES URINE NEGATIVE (NEGATIVE); CANNABINOIDS URINE NEGATIVE (NEGATIVE); COCAINE METABOLITE URINE NEGATIVE (NEGATIVE); METHADONE URINE NEGATIVE (NEGATIVE); OPIATES URINE NEGATIVE (NEGATIVE); PHENCYCLIDINE URINE NEGATIVE (NEGATIVE)
[2022-03-07 03:57] LABS: RSV AMPLIFICATION NEGATIVE (NEGATIVE)
[2022-03-07] MEDS ORDERED: FOSFOMYCIN TROMETHAMINE 3 GM POWDER PACKET (MONUROL) PO ONE (04:00)
[2022-03-07 04:31] LABS: CK-MB VALUE MASS < 1.0 NG/ML (<3.6)
[2022-03-07 04:36] LABS: CPK CREATINE PHOSPHOKINASE 33 U/L (34-145); MB/CK RELATIVE INDEX 3.03 (< OR =4)
[2022-03-07] MEDS ORDERED: HEPARIN DRIP 25,000 UNITS in IV 1 EA IV SCH (04:55)
[2022-03-07] MEDS ORDERED: ASPIRIN 81MG CHEW TABLET PO ONE (04:55)
[2022-03-07] MEDS ORDERED: ISOVUE-370 76% 100ML VIAL As Ordered ONE (05:07)
[2022-03-07 05:40] LABS: CK-MB VALUE MASS < 1.0 NG/ML (<3.6)
[2022-03-07 05:47] LABS: CPK CREATINE PHOSPHOKINASE 36 U/L (34-145); MB/CK RELATIVE INDEX 2.77 (< OR =4)
[2022-03-07 06:01] LABS: INR 0.97; PROTHROMBIN TIME 13.1 SECONDS (12.5-14.5)
[2022-03-07 06:02] LABS: PARTIAL THROMBOPLASTIN TIME 23.9 SECONDS (24.8-34.2)
[2022-03-07] MEDS ORDERED: HOME MED LIST COMPLETE! XX SCH (07:00)
[2022-03-07] MEDS ORDERED: ACETAMINOPHEN TAB 650MG DOSE (2X325MG) PO PRN (08:15)
[2022-03-07] MEDS ORDERED: ATORVASTATIN 20 MG TAB PO SCH (09:00)
[2022-03-07] MEDS: VITAMIN D 1,000 INTERNATIONAL UNITS TABLET PO SCH (09:46)
[2022-03-07] MEDS: CitaloPRAM (CeleXA) 20 MG TAB PO SCH (09:46)
[2022-03-07 11:12] LABS: CHOLESTEROL RISK RATIO 2.63 (<5); HDL CHOLESTEROL 57.3 MG/DL (>40); LDL CHOLESTEROL 70.3 MG/DL (<100)
[2022-03-07] MEDS: APIXABAN 5 MG TAB (ELIQUIS) PO SCH ×2 (15:15→21:29)
[2022-03-07 16:20] LABS: HEMOGLOBIN A1c 5.5 % (4.0-6.0)
[2022-03-07 21:10] VITALS: BP 127/68
[2022-03-07] MEDS: ATORVASTATIN 20 MG TAB PO SCH (21:29)
[2022-03-07] MEDS: METOPROLOL TART 25 MG TABLET PO SCH (21:29)
[2022-03-08] VITALS: BP 108/53
[2022-03-08 05:43] LABS: BASO % 0.5 % (0.0-1.0); EOS # 0.3 10^3/uL (0.0-0.5); EOS % 3.9 % (0.0-3.0); HEMATOCRIT 38.6 % (36.0-47.0); HEMOGLOBIN 12.6 g/dl (12.0-15.5); LYMPH # 2.4 10^3/uL (1.5-5.0); LYMPH % 30.3 % (24.0-44.0); MEAN CORPUSCULAR HEMOGLOBIN 31.7 pg (27.0-33.0); MEAN CORPUSCULAR HGB CONC 32.6 g/dl (32.0-36.5); MEAN CORPUSCULAR VOLUME 97.2 fl (80.0-96.0); MONO # 0.6 10^3/uL (0.0-0.8); MONO % 7.9 % (2.0-8.0); NEUTROPHILS # 4.6 10^3/uL (1.5-8.5); NEUTROPHILS % 57.2 % (36.0-66.0); PLATELET COUNT, AUTOMATED 296 10^3/uL (150-450); RED BLOOD COUNT 3.97 10^6/uL (4.00-5.40)
[2022-03-08 06:00] LABS: MAGNESIUM LEVEL 1.6 MG/DL (1.8-2.4)
[2022-03-08 06:16] LABS: BLOOD UREA NITROGEN 9 MG/DL (9-23); CALCIUM LEVEL 8.7 MG/DL (8.3-10.6); CARBON DIOXIDE LEVEL 24 MMOL/L (20-31); CHLORIDE LEVEL 104 MMOL/L (98-107); CREATININE FOR GFR 0.59 MG/DL (0.55-1.30); GLOMERULAR FILTRATION RATE > 60.0 (>45); GLUCOSE, FASTING 103 MG/DL (74-106); PHOSPHORUS LEVEL 2.7 MG/DL (2.4-5.1); POTASSIUM SERUM 4.4 MMOL/L (3.5-5.1); SODIUM LEVEL 137 MMOL/L (136-145)
[2022-03-08 08:00] VITALS: BP 126/55
[2022-03-08 10:00] VITALS: BP 121/59
[2022-03-08] MEDS: APIXABAN 5 MG TAB (ELIQUIS) PO SCH ×2 (10:02→21:05)
[2022-03-08] MEDS: CitaloPRAM (CeleXA) 20 MG TAB PO SCH (10:02)
[2022-03-08] MEDS: ASPIRIN 81MG ENTERIC TABLET PO SCH (10:03)
[2022-03-08] MEDS: VITAMIN D 1,000 INTERNATIONAL UNITS TABLET PO SCH (10:03)
[2022-03-08] MEDS: METOPROLOL TART 25 MG TABLET PO SCH ×2 (10:03→21:06)
[2022-03-08] MEDS ORDERED: MAGNESIUM OXIDE 400MG TAB (MAG-OX) PO ONE (11:30)
[2022-03-08 11:56] VITALS: BP 108/60
[2022-03-08 16:00] VITALS: BP 117/56
[2022-03-08 19:28] VITALS: BP 107/59
[2022-03-08] MEDS: ATORVASTATIN 20 MG TAB PO SCH (21:06)
[2022-03-09] VITALS: BP 136/63
[2022-03-09 04:00] VITALS: BP 155/67
[2022-03-09 04:35] LABS: BASO # 0.1 10^3/uL (0.0-0.2); BASO % 0.5 % (0.0-1.0); EOS # 0.5 10^3/uL (0.0-0.5); EOS % 4.9 % (0.0-3.0); HEMATOCRIT 38.6 % (36.0-47.0); HEMOGLOBIN 12.5 g/dl (12.0-15.5); LYMPH # 3.2 10^3/uL (1.5-5.0); LYMPH % 32.7 % (24.0-44.0); MEAN CORPUSCULAR HGB CONC 32.4 g/dl (32.0-36.5); MEAN CORPUSCULAR VOLUME 98.7 fl (80.0-96.0); MONO # 0.8 10^3/uL (0.0-0.8); MONO % 7.9 % (2.0-8.0); NEUTROPHILS # 5.3 10^3/uL (1.5-8.5); NEUTROPHILS % 53.8 % (36.0-66.0); PLATELET COUNT, AUTOMATED 327 10^3/uL (150-450); RED BLOOD COUNT 3.91 10^6/uL (4.00-5.40); WHITE BLOOD COUNT 9.9 10^3/uL (4.0-10.0)
[2022-03-09 04:57] LABS: MAGNESIUM LEVEL 1.8 MG/DL (1.8-2.4)
[2022-03-09 05:03] LABS: BLOOD UREA NITROGEN 18 MG/DL (9-23); CALCIUM LEVEL 9.3 MG/DL (8.3-10.6); CARBON DIOXIDE LEVEL 30 MMOL/L (20-31); CHLORIDE LEVEL 102 MMOL/L (98-107); CREATININE FOR GFR 0.68 MG/DL (0.55-1.30); GLOMERULAR FILTRATION RATE > 60.0 (>45); GLUCOSE, FASTING 105 MG/DL (74-106); PHOSPHORUS LEVEL 3.6 MG/DL (2.4-5.1); POTASSIUM SERUM 4.6 MMOL/L (3.5-5.1); SODIUM LEVEL 138 MMOL/L (136-145)
[2022-03-09 08:00] VITALS: BP 123/64
[2022-03-09] MEDS ORDERED: MAGNESIUM OXIDE 400MG TAB (MAG-OX) PO ONE (08:55)
[2022-03-09] MEDS: ASPIRIN 81MG ENTERIC TABLET PO SCH (09:09)
[2022-03-09 09:10] VITALS: BP 155/67
[2022-03-09] MEDS: APIXABAN 5 MG TAB (ELIQUIS) PO SCH (09:10)
[2022-03-09] MEDS: METOPROLOL TART 25 MG TABLET PO SCH (09:10)
[2022-03-09] MEDS: VITAMIN D 1,000 INTERNATIONAL UNITS TABLET PO SCH (09:10)
[2022-03-09] MEDS: CitaloPRAM (CeleXA) 20 MG TAB PO SCH (09:10)
[2022-03-09] MEDS ORDERED: METO1TAB87 PO (10:26)
[2022-03-09] MEDS ORDERED: ASPI81TAEC PO (10:26)
[2022-03-09] MEDS ORDERED: ATOR40TA75 PO (10:26)
[2022-03-09] MEDS ORDERED: ELIQ5TAB PO (10:26)
== END 2022-03-09 12:32 | disposition home or self-care (01) | DRG 69 ==
LOC: M ED 01:23 → M ED INP 08:14 → ENRESERV 19:38 → M PCU 21:21
PROVIDERS: ADMIT Internal Medicine; ATTEND Internal Medicine
PROC: B246ZZZ Ultrasonography of Right and Left Heart (ICD-10-PCS; principal; 2022-03-07)
DX: G45.9 Transient cerebral ischemic attack, unspecified (principal); I21.A1 Myocardial infarction type 2; E72.20 Disorder of urea cycle metabolism, unspecified; R56.9 Unspecified convulsions; K21.9 Gastro-esophageal reflux disease without esophagitis; R13.10 Dysphagia, unspecified; R29.810 Facial weakness; I48.0 Paroxysmal atrial fibrillation; E04.9 Nontoxic goiter, unspecified; I10 Essential (primary) hypertension; M19.90 Unspecified osteoarthritis, unspecified site; E78.5 Hyperlipidemia, unspecified; E55.9 Vitamin D deficiency, unspecified; Z87.442 Personal history of urinary calculi; Z79.899 Other long term (current) drug therapy

== ENCOUNTER 2022-04-05 09:44 | Emergency (ER) | payer MEDICARE, OTHER ==
[~2022-04-05] VITALS: Ht 170.2 cm; Wt 104.0 kg
[~2022-04-05 09:44] MED LIST changes: +ASPI81TAEC PO; +ATOR40TA75 PO; +ELIQ5TAB PO; +METO1TAB87 PO
[2022-04-05 10:34] LABS: BASO % 0.5 % (0.0-1.0); EOS # 0.5 10^3/uL (0.0-0.5); EOS % 6.8 % (0.0-3.0); HEMATOCRIT 41.5 % (36.0-47.0); HEMOGLOBIN 13.5 g/dl (12.0-15.5); LYMPH # 1.6 10^3/uL (1.5-5.0); LYMPH % 20.8 % (24.0-44.0); MEAN CORPUSCULAR HGB CONC 32.5 g/dl (32.0-36.5); MEAN CORPUSCULAR VOLUME 95.2 fl (80.0-96.0); MONO # 0.6 10^3/uL (0.0-0.8); MONO % 7.4 % (2.0-8.0); NEUTROPHILS # 4.9 10^3/uL (1.5-8.5); NEUTROPHILS % 64.2 % (36.0-66.0); PLATELET COUNT, AUTOMATED 355 10^3/uL (150-450); RED BLOOD COUNT 4.36 10^6/uL (4.00-5.40); WHITE BLOOD COUNT 7.6 10^3/uL (4.0-10.0)
[2022-04-05 12:16] LABS: BLOOD UREA NITROGEN 17 MG/DL (9-23); CALCIUM LEVEL 9.2 MG/DL (8.3-10.6); CARBON DIOXIDE LEVEL 30 MMOL/L (20-31); CHLORIDE LEVEL 99 MMOL/L (98-107); CREATININE FOR GFR 0.67 MG/DL (0.55-1.30); GLOMERULAR FILTRATION RATE > 60.0 (>45); GLUCOSE, FASTING 109 MG/DL (74-106); SODIUM LEVEL 137 MMOL/L (136-145)
[2022-04-05] MEDS ORDERED: MORPHINE 4 MG/ML 1ML VIAL IV PRN (14:15)
[2022-04-05] MEDS ORDERED: NS 1,000 ML IV ONE (14:15)
[2022-04-05] MEDS ORDERED: ONDANSETRON 4MG 2ML VIAL IV ONE (14:15)
[2022-04-05] MEDS ORDERED: AMOX875T2 PO (15:40)
[2022-04-05] MEDS ORDERED: cefTRIAXone SOD 1 GM in D5W MINI-BAG PLUS 50 ML IV ONE (15:40)
[2022-04-05 16:26] VITALS: BP 180/93
== END 2022-04-05 16:31 | disposition home or self-care (01) ==
LOC: M ED 09:44
DX: N39.0 Urinary tract infection, site not specified (principal); N20.0 Calculus of kidney; I48.91 Unspecified atrial fibrillation; R93.5 Abnormal findings on diagnostic imaging of other abdominal regions, including retroperitoneum; I10 Essential (primary) hypertension; Z87.442 Personal history of urinary calculi; K57.30 Diverticulosis of large intestine without perforation or abscess without bleeding; Z79.01 Long term (current) use of anticoagulants; Z79.899 Other long term (current) drug therapy
CPT/HCPCS: 74176; 80048; 81000; 81015; 85025; 87088; 87186; 93005; 96361; 96365; 96375; 99284; J2405

== ENCOUNTER → 2022-04-08 | Outpatient (CLI) | payer MEDICARE, OTHER | LOC: M SLEEP 08:57 | PROVIDERS: ATTEND Internal Medicine | DX: R56.9 Unspecified convulsions (principal) ==

== ENCOUNTER 2022-06-06 12:59 | Inpatient (IN) | payer MEDICARE, OTHER ==
[~2022-06-06] VITALS: Ht 170.2 cm; Wt 106.1 kg
[2022-06-06] MEDS ORDERED: PANTOPRAZOLE 40MG VIAL IV ONE (13:30)
[2022-06-06] MEDS ORDERED: NS 1,000 ML IV SCH (13:35)
[2022-06-06 13:55] LABS: BASO # 0.1 10^3/uL (0.0-0.2); BASO % 0.4 % (0.0-1.0); EOS # 0.3 10^3/uL (0.0-0.5); EOS % 2.7 % (0.0-3.0); HEMATOCRIT 32.1 % (36.0-47.0); HEMOGLOBIN 10.6 g/dl (12.0-15.5); LYMPH # 2.2 10^3/uL (1.5-5.0); LYMPH % 19.5 % (24.0-44.0); MEAN CORPUSCULAR HEMOGLOBIN 31.9 pg (27.0-33.0); MEAN CORPUSCULAR VOLUME 96.7 fl (80.0-96.0); MONO # 0.4 10^3/uL (0.0-0.8); MONO % 3.8 % (2.0-8.0); NEUTROPHILS # 8.4 10^3/uL (1.5-8.5); NEUTROPHILS % 73.3 % (36.0-66.0); PLATELET COUNT, AUTOMATED 417 10^3/uL (150-450); RED BLOOD COUNT 3.32 10^6/uL (4.00-5.40); WHITE BLOOD COUNT 11.4 10^3/uL (4.0-10.0)
[2022-06-06 14:06] LABS: INR 1.1; PARTIAL THROMBOPLASTIN TIME 21.3 SECONDS (24.8-34.2); PROTHROMBIN TIME 14.4 SECONDS (12.5-14.5)
[2022-06-06 14:24] LABS: LIPASE 36 U/L (12-53)
[2022-06-06 14:25] LABS: CK-MB VALUE MASS < 1.0 NG/ML (<3.6)
[2022-06-06 14:26] LABS: CPK CREATINE PHOSPHOKINASE 26 U/L (34-145); MB/CK RELATIVE INDEX 3.84 (< OR =4)
[2022-06-06 14:29] LABS: ALBUMIN 3.3 G/DL (3.2-5.2); ALKALINE PHOSPHATASE 76 U/L (46-116); ALT/SGPT 23 U/L (7.0-40); AST/SGOT 14 U/L (<34); BILIRUBIN,DIRECT 0.1 MG/DL (<0.4); BILIRUBIN,TOTAL 0.5 MG/DL (0.3-1.2); BLOOD UREA NITROGEN 60 MG/DL (9-23); CARBON DIOXIDE LEVEL 25 MMOL/L (20-31); CHLORIDE LEVEL 100 MMOL/L (98-107); CREATININE FOR GFR 0.74 MG/DL (0.55-1.30); GLOMERULAR FILTRATION RATE > 60.0 (>45); GLUCOSE, FASTING 190 MG/DL (74-106); POTASSIUM SERUM 4.6 MMOL/L (3.5-5.1); SODIUM LEVEL 134 MMOL/L (136-145); TOTAL PROTEIN 6.6 G/DL (5.7-8.2)
[2022-06-06] MEDS ORDERED: ISOVUE-370 76% 100ML VIAL As Ordered ONE (15:28)
[2022-06-06 15:31] LABS: RSV AMPLIFICATION NEGATIVE (NEGATIVE)
[2022-06-06] MEDS ORDERED: ECOT81TA5 PO (18:00)
[2022-06-06] MEDS ORDERED: ELIQ5TAB PO (18:00)
[2022-06-06] MEDS ORDERED: ATOR40TA75 PO (18:00)
[2022-06-06] MEDS ORDERED: METO1TAB87 PO (18:00)
[2022-06-06] MEDS ORDERED: HOME MED LIST COMPLETE! XX SCH (18:05)
[2022-06-06] MEDS: PANTOPRAZOLE SODIUM 40 MG in D5W 50 ML IV SCH ×2 (18:07→22:04)
[2022-06-06] MEDS ORDERED: MORPHINE 4 MG/ML 1ML VIAL IV ONE (18:15)
[2022-06-06] MEDS ORDERED: PANTOPRAZOLE SODIUM 40 MG in D5W 50 ML IV SCH (18:20)
[2022-06-06] MEDS: SUCRALFATE SUSP 1GM/10ML UD PO SCH (18:39)
[2022-06-06] MEDS ORDERED: MORPHINE 2 MG/ML 1ML VIAL IV PRN (18:55)
[2022-06-06] MEDS ORDERED: ONDANSETRON 4MG 2ML VIAL IV PRN (18:55)
[2022-06-06 20:06] LABS: HEMOGLOBIN 9.7 g/dl (12.0-15.5)
[2022-06-06 21:00] VITALS: BP 113/57
[2022-06-06] MEDS ORDERED: METOPROLOL TART 25 MG TABLET PO SCH (21:00)
[2022-06-07] MEDS: D5W/0.9% SODIUM CHLORIDE 1,000 ML IV SCH ×2 (00:23→13:02)
[2022-06-07] MEDS: SUCRALFATE SUSP 1GM/10ML UD PO SCH ×4 (00:23→18:31)
[2022-06-07 02:12] LABS: HEMATOCRIT 26.6 % (36.0-47.0); HEMOGLOBIN 8.8 g/dl (12.0-15.5)
[2022-06-07] MEDS: PANTOPRAZOLE SODIUM 40 MG in D5W 50 ML IV SCH ×4 (03:16→18:30)
[2022-06-07 07:33] LABS: BASO % 0.3 % (0.0-1.0); EOS # 0.3 10^3/uL (0.0-0.5); EOS % 2.3 % (0.0-3.0); HEMATOCRIT 25.6 % (36.0-47.0); HEMOGLOBIN 8.4 g/dl (12.0-15.5); LYMPH # 2.7 10^3/uL (1.5-5.0); LYMPH % 22.6 % (24.0-44.0); MEAN CORPUSCULAR HEMOGLOBIN 31.8 pg (27.0-33.0); MEAN CORPUSCULAR HGB CONC 32.8 g/dl (32.0-36.5); MONO # 0.7 10^3/uL (0.0-0.8); MONO % 6.2 % (2.0-8.0); NEUTROPHILS % 68.2 % (36.0-66.0); RED BLOOD COUNT 2.64 10^6/uL (4.00-5.40); WHITE BLOOD COUNT 11.7 10^3/uL (4.0-10.0)
[2022-06-07 07:36] LABS: PLATELET COUNT, AUTOMATED 307 10^3/uL (150-450)
[2022-06-07 08:01] LABS: BLOOD UREA NITROGEN 53 MG/DL (9-23); CALCIUM LEVEL 8.1 MG/DL (8.3-10.6); CARBON DIOXIDE LEVEL 28 MMOL/L (20-31); CHLORIDE LEVEL 106 MMOL/L (98-107); CREATININE FOR GFR 0.67 MG/DL (0.55-1.30); GLOMERULAR FILTRATION RATE > 60.0 (>45); GLUCOSE, FASTING 127 MG/DL (74-106); POTASSIUM SERUM 3.6 MMOL/L (3.5-5.1); SODIUM LEVEL 139 MMOL/L (136-145)
[2022-06-07] MEDS: ATORVASTATIN 20 MG TAB PO SCH (09:33)
[2022-06-07] MEDS: CitaloPRAM (CeleXA) 20 MG TAB PO SCH (09:33)
[2022-06-07 12:17] LABS: HEMATOCRIT 24.2 % (36.0-47.0); HEMOGLOBIN 7.9 g/dl (12.0-15.5)
[2022-06-07 12:34] VITALS: BP 120/63
[2022-06-07 13:41] VITALS: BP 117/96
[2022-06-07 14:02] VITALS: BP 113/57
[2022-06-07 15:00] VITALS: BP 111/55
[2022-06-07 16:15] VITALS: BP 126/59
[2022-06-07 20:25] VITALS: BP 123/59
[2022-06-07 23:56] LABS: HEMATOCRIT 25.3 % (36.0-47.0); HEMOGLOBIN 8.4 g/dl (12.0-15.5)
[2022-06-08 00:17] VITALS: BP 129/58
[2022-06-08] MEDS: PANTOPRAZOLE SODIUM 40 MG in D5W 50 ML IV SCH ×5 (00:23→21:01)
[2022-06-08] MEDS: SUCRALFATE SUSP 1GM/10ML UD PO SCH ×4 (00:23→19:10)
[2022-06-08] MEDS ORDERED: RAMELTEON 8 MG TAB (ROZEREM) PO PRN (01:05)
[2022-06-08] MEDS: D5W/0.9% SODIUM CHLORIDE 1,000 ML IV SCH ×2 (02:11→15:53)
[2022-06-08 04:26] VITALS: BP 99/52
[2022-06-08 06:04] LABS: BASO % 0.4 % (0.0-1.0); EOS # 0.4 10^3/uL (0.0-0.5); EOS % 5.6 % (0.0-3.0); HEMATOCRIT 25.1 % (36.0-47.0); HEMOGLOBIN 8.2 g/dl (12.0-15.5); LYMPH # 2.2 10^3/uL (1.5-5.0); LYMPH % 29.2 % (24.0-44.0); MEAN CORPUSCULAR HEMOGLOBIN 31.5 pg (27.0-33.0); MEAN CORPUSCULAR HGB CONC 32.7 g/dl (32.0-36.5); MEAN CORPUSCULAR VOLUME 96.5 fl (80.0-96.0); MONO # 0.4 10^3/uL (0.0-0.8); MONO % 5.7 % (2.0-8.0); NEUTROPHILS # 4.4 10^3/uL (1.5-8.5); NEUTROPHILS % 58.7 % (36.0-66.0); PLATELET COUNT, AUTOMATED 244 10^3/uL (150-450); WHITE BLOOD COUNT 7.6 10^3/uL (4.0-10.0)
[2022-06-08 06:33] LABS: BLOOD UREA NITROGEN 24 MG/DL (9-23); CALCIUM LEVEL 7.9 MG/DL (8.3-10.6); CARBON DIOXIDE LEVEL 27 MMOL/L (20-31); CHLORIDE LEVEL 107 MMOL/L (98-107); CREATININE FOR GFR 0.53 MG/DL (0.55-1.30); GLOMERULAR FILTRATION RATE > 60.0 (>45); GLUCOSE, FASTING 128 MG/DL (74-106); POTASSIUM SERUM 3.5 MMOL/L (3.5-5.1); SODIUM LEVEL 139 MMOL/L (136-145)
[2022-06-08 07:40] VITALS: BP 101/50
[2022-06-08] MEDS: ATORVASTATIN 20 MG TAB PO SCH (09:17)
[2022-06-08] MEDS: CitaloPRAM (CeleXA) 20 MG TAB PO SCH (09:17)
[2022-06-08 12:11] LABS: HEMATOCRIT 26.6 % (36.0-47.0); HEMOGLOBIN 8.7 g/dl (12.0-15.5)
[2022-06-08 12:25] VITALS: BP 119/60
[2022-06-08] MEDS ORDERED: fentaNYL 100 MCG/2 ML INJECTION As Ordered ONE (17:45)
[2022-06-08] MEDS ORDERED: propofoL 200 MG/20 ML VIAL As Ordered ONE (17:45)
[2022-06-08] MEDS ORDERED: MIDAZOLAM INJ 2MG/2ML VIAL As Ordered ONE (17:45)
[2022-06-08] MEDS ORDERED: LIDOCAINE 2% 100MG/5ML SDV (FOR ANES.) As Ordered ONE (17:45)
[2022-06-08 18:53] VITALS: BP 124/61
[2022-06-08 19:22] LABS: HEMATOCRIT 23.9 % (36.0-47.0); HEMOGLOBIN 7.8 g/dl (12.0-15.5)
[2022-06-08 20:27] VITALS: BP 144/68
[2022-06-09] VITALS (10 sets, daily range): BP systolic 120–150; BP diastolic 58–71
[2022-06-09] MEDS: SUCRALFATE SUSP 1GM/10ML UD PO SCH ×2 (00:52→06:33)
[2022-06-09] MEDS: PANTOPRAZOLE SODIUM 40 MG in D5W 50 ML IV SCH ×3 (00:52→10:14)
[2022-06-09 07:02] LABS: BASO % 0.4 % (0.0-1.0); EOS # 0.5 10^3/uL (0.0-0.5); EOS % 6.3 % (0.0-3.0); HEMATOCRIT 23.5 % (36.0-47.0); HEMOGLOBIN 7.6 g/dl (12.0-15.5); LYMPH # 2.1 10^3/uL (1.5-5.0); LYMPH % 28.7 % (24.0-44.0); MEAN CORPUSCULAR HEMOGLOBIN 31.7 pg (27.0-33.0); MEAN CORPUSCULAR HGB CONC 32.3 g/dl (32.0-36.5); MEAN CORPUSCULAR VOLUME 97.9 fl (80.0-96.0); MONO # 0.5 10^3/uL (0.0-0.8); MONO % 6.3 % (2.0-8.0); NEUTROPHILS # 4.2 10^3/uL (1.5-8.5); NEUTROPHILS % 57.6 % (36.0-66.0); PLATELET COUNT, AUTOMATED 252 10^3/uL (150-450); WHITE BLOOD COUNT 7.4 10^3/uL (4.0-10.0)
[2022-06-09 07:37] LABS: BLOOD UREA NITROGEN 9 MG/DL (9-23); CARBON DIOXIDE LEVEL 28 MMOL/L (20-31); CHLORIDE LEVEL 109 MMOL/L (98-107); CREATININE FOR GFR 0.56 MG/DL (0.55-1.30); GLOMERULAR FILTRATION RATE > 60.0 (>45); GLUCOSE, FASTING 108 MG/DL (74-106); POTASSIUM SERUM 3.5 MMOL/L (3.5-5.1); SODIUM LEVEL 140 MMOL/L (136-145)
[2022-06-09] MEDS: CitaloPRAM (CeleXA) 20 MG TAB PO SCH (08:31)
[2022-06-09] MEDS: ATORVASTATIN 20 MG TAB PO SCH (10:07)
[2022-06-09] MEDS ORDERED: PANTOPRAZOLE 40MG TAB (PROTONIX) PO SCH (11:05)
[2022-06-09] MEDS ORDERED: PANT40TA29 PO (11:06)
[2022-06-09] MEDS ORDERED: SUCR1TA PO (11:06)
[2022-06-09] MEDS: SUCRALFATE 1 GM TAB PO SCH ×2 (15:01→18:41)
[2022-06-09 17:30] LABS: HEMATOCRIT 28.2 % (36.0-47.0); HEMOGLOBIN 9.3 g/dl (12.0-15.5)
== END 2022-06-09 18:50 | disposition home or self-care (01) | DRG 813 ==
LOC: M ED 12:59 → M ED INP 18:18 → ENRESERV 22:34 → M PCU 06-07 12:24 → M PED 06-09 01:45
PROVIDERS: ADMIT Internal Medicine Nephrology; ATTEND General Practice
PROC: 30233N1 Transfusion of Nonautologous Red Blood Cells into Peripheral Vein, Percutaneous Approach (ICD-10-PCS; 2022-06-07)
PROC: 0DJ08ZZ Inspection of Upper Intestinal Tract, Via Natural or Artificial Opening Endoscopic (ICD-10-PCS; principal; 2022-06-08 09:00)
DX: D68.32 Hemorrhagic disorder due to extrinsic circulating anticoagulants (principal); K92.2 Gastrointestinal hemorrhage, unspecified; D62 Acute posthemorrhagic anemia; I48.0 Paroxysmal atrial fibrillation; R13.10 Dysphagia, unspecified; K29.70 Gastritis, unspecified, without bleeding; I10 Essential (primary) hypertension; E66.9 Obesity, unspecified; K21.00 Gastro-esophageal reflux disease with esophagitis, without bleeding; M19.90 Unspecified osteoarthritis, unspecified site; K44.9 Diaphragmatic hernia without obstruction or gangrene; K57.90 Diverticulosis of intestine, part unspecified, without perforation or abscess without bleeding; E04.1 Nontoxic single thyroid nodule; K25.9 Gastric ulcer, unspecified as acute or chronic, without hemorrhage or perforation; K27.9 Peptic ulcer, site unspecified, unspecified as acute or chronic, without hemorrhage or perforation; F41.9 Anxiety disorder, unspecified; L71.9 Rosacea, unspecified; F32.A Depression, unspecified; E55.9 Vitamin D deficiency, unspecified; N39.3 Stress incontinence (female) (male); Z86.73 Personal history of transient ischemic attack (TIA), and cerebral infarction without residual deficits; Z87.442 Personal history of urinary calculi; Z87.81 Personal history of (healed) traumatic fracture; Z68.35 Body mass index [BMI] 35.0-35.9, adult; Z79.01 Long term (current) use of anticoagulants; Z79.82 Long term (current) use of aspirin; Z79.899 Other long term (current) drug therapy

== ENCOUNTER → 2022-06-16 | Outpatient (CLI) | payer MEDICARE, OTHER ==
[~2022-06-16] MED LIST changes: +ECOT81TA5 PO; +PANT40TA29 PO; +SUCR1TA PO
[2022-06-16 16:19] LABS: BASO % 0.6 % (0.0-1.0); EOS # 0.7 10^3/uL (0.0-0.5); EOS % 9.6 % (0.0-3.0); HEMATOCRIT 38.4 % (36.0-47.0); HEMOGLOBIN 12.2 g/dl (12.0-15.5); LYMPH # 1.9 10^3/uL (1.5-5.0); LYMPH % 26.8 % (24.0-44.0); MEAN CORPUSCULAR HEMOGLOBIN 31.4 pg (27.0-33.0); MEAN CORPUSCULAR HGB CONC 31.8 g/dl (32.0-36.5); MEAN CORPUSCULAR VOLUME 98.7 fl (80.0-96.0); MONO # 0.7 10^3/uL (0.0-0.8); MONO % 9.2 % (2.0-8.0); NEUTROPHILS # 3.8 10^3/uL (1.5-8.5); NEUTROPHILS % 53.7 % (36.0-66.0); PLATELET COUNT, AUTOMATED 473 10^3/uL (150-450); RED BLOOD COUNT 3.89 10^6/uL (4.00-5.40); WHITE BLOOD COUNT 7.1 10^3/uL (4.0-10.0)
== END ==
LOC: M PLALAB 08:55
PROVIDERS: ATTEND Nurse Practitioner Family
DX: D50.0 Iron deficiency anemia secondary to blood loss (chronic) (principal)

== ENCOUNTER → 2022-11-12 | Outpatient (REF) | payer MEDICARE, OTHER | LOC: M SFHCWAGY 13:12 | PROVIDERS: ATTEND Nurse Practitioner Family | DX: Z12.4 Encounter for screening for malignant neoplasm of cervix (principal); R35.0 Frequency of micturition; R87.5 Abnormal microbiological findings in specimens from female genital organs | CPT/HCPCS: 87088; 87186; 87624; G0123 ==

== ENCOUNTER → 2022-11-12 | Outpatient (CLI) | payer MEDICARE | LOC: M WHC 09:24 | PROVIDERS: ATTEND Nurse Practitioner Family | DX: Z12.31 Encounter for screening mammogram for malignant neoplasm of breast (principal) ==

== ENCOUNTER → 2023-03-22 | Outpatient (REF) | payer MEDICARE, OTHER ==
[2023-03-22 17:45] LABS: AMORPHOUS SEDIMENT MODERATE (NEGATIVE); APPEARANCE, URINE HAZY (CLEAR); BACTERIA, URINE AUTO NEGATIVE (NEGATIVE); BILIRUBIN, URINE AUTO NEGATIVE (NEGATIVE); BLOOD, URINE BLOOD 1+ (NEGATIVE); COLOR, URINE YELLOW (YELLOW); GLUCOSE, URINE (UA) AUTO NEGATIVE (NEGATIVE); KETONE, URINE AUTO NEGATIVE (NEGATIVE); LEUKOCYTE ESTERASE, URINE AUTO 1+ (NEGATIVE); MUCUS, URINE SMALL (NEGATIVE); NITRITE, URINE AUTO NEGATIVE (NEGATIVE); PROTEIN, URINE AUTO NEGATIVE (NEGATIVE); RBC, URINE AUTO 12 /HPF (0-3); SPECIFIC GRAVITY URINE AUTO 1.017 (1.002-1.035); SQUAMOUS EPITHELIAL CELL UR AU 1 /HPF (0-6); UROBILINOGEN, URINE AUTO 0.2 mg/dL (0.0-2.0); WBC, URINE AUTO 33 /HPF (0-3)
== END ==
LOC: M SFHCPLAZ 16:47
PROVIDERS: ATTEND Nurse Practitioner Family
DX: R39.9 Unspecified symptoms and signs involving the genitourinary system (principal)

== ENCOUNTER → 2023-06-07 | Outpatient (REF) | payer MEDICARE, OTHER ==
[2023-06-07 14:15] LABS: APPEARANCE, URINE CLOUDY (CLEAR); BACTERIA, URINE AUTO 2+ (NEGATIVE); BILIRUBIN, URINE AUTO NEGATIVE (NEGATIVE); BLOOD, URINE BLOOD NEGATIVE (NEGATIVE); COLOR, URINE AMBER (YELLOW); GLUCOSE, URINE (UA) AUTO NEGATIVE (NEGATIVE); KETONE, URINE AUTO TRACE mg/dL (NEGATIVE); LEUKOCYTE ESTERASE, URINE AUTO 2+ (NEGATIVE); MUCUS, URINE SMALL (NEGATIVE); NITRITE, URINE AUTO NEGATIVE (NEGATIVE); PROTEIN, URINE AUTO 1+ mg/dL (NEGATIVE); RBC, URINE AUTO 2 /HPF (0-3); SPECIFIC GRAVITY URINE AUTO 1.018 (1.002-1.035); SQUAMOUS EPITHELIAL CELL UR AU 28 /HPF (0-6); WBC, URINE AUTO 75 /HPF (0-3)
== END ==
LOC: M SFHCPLAZ 13:02
PROVIDERS: ATTEND Nurse Practitioner Family
DX: N39.0 Urinary tract infection, site not specified (principal)

== ENCOUNTER → 2023-08-02 | Outpatient (CLI) | payer MEDICARE, OTHER ==
[2023-08-02 11:11] LABS: BASO % 0.6 % (0.0-1.0); EOS # 0.4 10^3/uL (0.0-0.5); EOS % 6.8 % (0.0-3.0); HEMATOCRIT 41.1 % (36.0-47.0); HEMOGLOBIN 13.9 g/dl (12.0-15.5); LYMPH # 1.5 10^3/uL (1.5-5.0); LYMPH % 24.3 % (24.0-44.0); MEAN CORPUSCULAR HEMOGLOBIN 32.3 pg (27.0-33.0); MEAN CORPUSCULAR HGB CONC 33.8 g/dl (32.0-36.5); MEAN CORPUSCULAR VOLUME 95.6 fl (80.0-96.0); MONO # 0.5 10^3/uL (0.0-0.8); MONO % 7.5 % (2.0-8.0); NEUTROPHILS # 3.8 10^3/uL (1.5-8.5); NEUTROPHILS % 60.5 % (36.0-66.0); PLATELET COUNT, AUTOMATED 304 10^3/uL (150-450); WHITE BLOOD COUNT 6.3 10^3/uL (4.0-10.0)
[2023-08-02 11:25] LABS: ERYTHROCYTE SEDIMENTATION RATE 39 mm/hr (0-30)
[2023-08-02 11:31] LABS: C REACTIVE PROTEIN QUANTITATIV < 0.40 MG/DL (<1.0)
[2023-08-02 11:33] LABS: ALBUMIN 3.4 G/DL (3.2-5.2); ALKALINE PHOSPHATASE 86 U/L (46-116); ALT/SGPT 30 U/L (7.0-40); AST/SGOT 18 U/L (<34); BILIRUBIN,TOTAL 0.6 MG/DL (0.3-1.2); BLOOD UREA NITROGEN 17 MG/DL (9-23); CALCIUM LEVEL 9.1 MG/DL (8.3-10.6); CARBON DIOXIDE LEVEL 27 MMOL/L (20-31); CHLORIDE LEVEL 104 MMOL/L (98-107); CREATININE FOR GFR 0.61 MG/DL (0.55-1.30); GLOMERULAR FILTRATION RATE > 60.0 (>45); GLUCOSE, FASTING 113 MG/DL (74-106); POTASSIUM SERUM 4.1 MMOL/L (3.5-5.1); SODIUM LEVEL 138 MMOL/L (136-145); TOTAL PROTEIN 7.1 G/DL (5.7-8.2)
== END ==
LOC: M RAD 10:21
PROVIDERS: ATTEND Physician Assistant Medical
DX: R31.29 Other microscopic hematuria (principal); N20.0 Calculus of kidney; R30.0 Dysuria

== ENCOUNTER → 2023-08-02 | Outpatient (REF) | payer MEDICARE ==
[2023-08-02 13:40] LABS: APPEARANCE, URINE CLOUDY (CLEAR); BACTERIA, URINE AUTO 1+ (NEGATIVE); BILIRUBIN, URINE AUTO NEGATIVE (NEGATIVE); BLOOD, URINE BLOOD 2+ (NEGATIVE); CALCIUM OXALATE CRYSTALS SMALL; COLOR, URINE AMBER (YELLOW); GLUCOSE, URINE (UA) AUTO NEGATIVE (NEGATIVE); KETONE, URINE AUTO NEGATIVE (NEGATIVE); LEUKOCYTE ESTERASE, URINE AUTO 2+ (NEGATIVE); MUCUS, URINE SMALL (NEGATIVE); NITRITE, URINE AUTO NEGATIVE (NEGATIVE); PROTEIN, URINE AUTO 1+ mg/dL (NEGATIVE); RBC, URINE AUTO 19 /HPF (0-3); SQUAMOUS EPITHELIAL CELL UR AU 16 /HPF (0-6); UROBILINOGEN, URINE AUTO 0.2 mg/dL (0.0-2.0); WBC, URINE AUTO 57 /HPF (0-3)
== END ==
LOC: M SFHCPLAZ 12:45
PROVIDERS: ATTEND Physician Assistant Medical
DX: R30.0 Dysuria (principal)

== ENCOUNTER → 2023-08-20 | Outpatient (CLI) | payer MEDICARE, OTHER ==
[2023-08-20 15:33] LABS: APPEARANCE, URINE CLOUDY (CLEAR); BACTERIA, URINE AUTO 1+ (NEGATIVE); BILIRUBIN, URINE AUTO NEGATIVE (NEGATIVE); BLOOD, URINE BLOOD 2+ (NEGATIVE); COLOR, URINE AMBER (YELLOW); GLUCOSE, URINE (UA) AUTO NEGATIVE (NEGATIVE); KETONE, URINE AUTO NEGATIVE (NEGATIVE); LEUKOCYTE ESTERASE, URINE AUTO 2+ (NEGATIVE); MUCUS, URINE SMALL (NEGATIVE); NITRITE, URINE AUTO NEGATIVE (NEGATIVE); PROTEIN, URINE AUTO 1+ mg/dL (NEGATIVE); RBC, URINE AUTO 106 /HPF (0-3); SPECIFIC GRAVITY URINE AUTO 1.024 (1.002-1.035); SQUAMOUS EPITHELIAL CELL UR AU 43 /HPF (0-6); WBC, URINE AUTO 95 /HPF (0-3)
[2023-08-20 16:20] LABS: ALBUMIN 3.6 G/DL (3.2-5.2); ALKALINE PHOSPHATASE 94 U/L (46-116); ALT/SGPT 29 U/L (7.0-40); AST/SGOT 21 U/L (<34); BILIRUBIN,TOTAL 0.4 MG/DL (0.3-1.2); BLOOD UREA NITROGEN 20 MG/DL (9-23); CALCIUM LEVEL 9.5 MG/DL (8.3-10.6); CARBON DIOXIDE LEVEL 28 MMOL/L (20-31); CHLORIDE LEVEL 104 MMOL/L (98-107); CHOLESTEROL LEVEL 188 MG/DL (<200); CHOLESTEROL RISK RATIO 3.43 (<5); CREATININE FOR GFR 0.78 MG/DL (0.55-1.30); GLOMERULAR FILTRATION RATE > 60.0 (>45); GLUCOSE, FASTING 115 MG/DL (74-106); HDL CHOLESTEROL 54.8 MG/DL (>40); LDL CHOLESTEROL 94.6 MG/DL (<100); NON-HDL-C 133.2 MG/DL; POTASSIUM SERUM 4.2 MMOL/L (3.5-5.1); SODIUM LEVEL 138 MMOL/L (136-145); THYROID STIMULATING HORMONE 1.696 uIU/ML (0.55-4.78); TOTAL 25(OH) VITAMIN D 47.3 NG/ML (20.0-100.0); TOTAL PROTEIN 7.3 G/DL (5.7-8.2); TRIGLYCERIDES LEVEL 193 MG/DL (<150)
[2023-08-20 17:27] LABS: HEMOGLOBIN A1c 5.4 % (4.0-6.0)
== END ==
LOC: M PLALAB 14:13
PROVIDERS: ATTEND Nurse Practitioner Family
DX: E55.9 Vitamin D deficiency, unspecified (principal); R39.9 Unspecified symptoms and signs involving the genitourinary system; R73.01 Impaired fasting glucose; E78.2 Mixed hyperlipidemia

== ENCOUNTER → 2023-12-28 | Outpatient (REF) | payer MEDICARE ==
[2023-12-28 18:18] LABS: APPEARANCE, URINE HAZY (CLEAR); BACTERIA, URINE AUTO 3+ (NEGATIVE); BILIRUBIN, URINE AUTO NEGATIVE (NEGATIVE); BLOOD, URINE BLOOD 1+ (NEGATIVE); COLOR, URINE YELLOW (YELLOW); GLUCOSE, URINE (UA) AUTO NEGATIVE (NEGATIVE); KETONE, URINE AUTO NEGATIVE (NEGATIVE); LEUKOCYTE ESTERASE, URINE AUTO 3+ (NEGATIVE); NITRITE, URINE AUTO NEGATIVE (NEGATIVE); PROTEIN, URINE AUTO NEGATIVE (NEGATIVE); RBC, URINE AUTO 5 /HPF (0-3); SPECIFIC GRAVITY URINE AUTO 1.016 (1.002-1.035); SQUAMOUS EPITHELIAL CELL UR AU 8 /HPF (0-6); WBC, URINE AUTO 119 /HPF (0-3)
== END ==
LOC: M SMT 17:17
PROVIDERS: ATTEND Nurse Practitioner Family
DX: N39.0 Urinary tract infection, site not specified (principal)

== ENCOUNTER 2024-06-11 15:05 | Inpatient (IN) | payer MEDICARE ==
[~2024-06-11] VITALS: Ht 170.2 cm; Wt 108.9 kg
[2024-06-11] MEDS: LIDOCAINE 2% 5ML JELLY UROJET TOP ONE (15:45)
[2024-06-11 16:35] LABS: VENOUS PH 7.337 UNITS (7.330-7.430)
[2024-06-11 16:36] LABS: VENOUS BASE EXCESS -0.3 (-2.0-2.0); VENOUS HCO3 26.3 MMOL/L (23.0-27.0); VENOUS O2 SATURATION 89.2 % (60.0-80.0); VENOUS PARTIAL PRESSURE CO2 50.3 mmHg (38.0-50.0); VENOUS PARTIAL PRESSURE O2 62.7 mmHg (30.0-50.0); VENOUS TOTAL CO2 27.9 MMOL/L (24.0-28.0)
[2024-06-11] MEDS: NS (Normal Saline) 0.9% 1,000 ML IV ONE (16:46)
[2024-06-11 16:53] LABS: BASO % 0.4 % (0.0-1.0); EOS # 0.1 10^3/uL (0.0-0.5); EOS % 1.1 % (0.0-3.0); HEMATOCRIT 42.9 % (36.0-47.0); HEMOGLOBIN 14.7 g/dl (12.0-15.5); LYMPH % 10.4 % (24.0-44.0); MEAN CORPUSCULAR HEMOGLOBIN 33.7 pg (27.0-33.0); MEAN CORPUSCULAR HGB CONC 34.3 g/dl (32.0-36.5); MEAN CORPUSCULAR VOLUME 98.4 fl (80.0-96.0); MONO # 0.7 10^3/uL (0.0-0.8); MONO % 6.8 % (2.0-8.0); NEUTROPHILS # 7.8 10^3/uL (1.5-8.5); NEUTROPHILS % 80.9 % (36.0-66.0); PLATELET COUNT, AUTOMATED 327 10^3/uL (150-450); RED BLOOD COUNT 4.36 10^6/uL (4.00-5.40); WHITE BLOOD COUNT 9.7 10^3/uL (4.0-10.0)
[2024-06-11 17:06] LABS: ETHYL ALCOHOL (ETHANOL) < 0.003 % (0.000-0.010)
[2024-06-11 17:07] LABS: SALICYLATE LEVEL < 3.0 MG/DL (<30)
[2024-06-11 17:16] LABS: OSMOLALITY SERUM 293 MOSM/KG (280-301)
[2024-06-11 17:19] LABS: PROCALCITONIN <0.04 ng/ml
[2024-06-11 17:34] LABS: ALBUMIN 3.3 G/DL (3.2-5.2); ALKALINE PHOSPHATASE 64 U/L (35-104); ALT/SGPT 99 U/L (7.0-40); AST/SGOT 103 U/L (<34); BILIRUBIN,DIRECT 0.1 MG/DL (<0.4); BILIRUBIN,TOTAL 0.4 MG/DL (0.3-1.2); BLOOD UREA NITROGEN 16 MG/DL (9-23); CALCIUM LEVEL 9.1 MG/DL (8.3-10.6); CARBON DIOXIDE LEVEL 29 MMOL/L (20-31); CHLORIDE LEVEL 97 MMOL/L (98-107); CK-MB VALUE MASS < 1.0 NG/ML (<3.6); CPK CREATINE PHOSPHOKINASE 89 U/L (34-145); CREATININE FOR GFR 0.57 MG/DL (0.55-1.30); GLOMERULAR FILTRATION RATE > 60.0 (>45); GLUCOSE, FASTING 139 MG/DL (74-106); MAGNESIUM LEVEL 1.5 MG/DL (1.8-2.4); MB/CK RELATIVE INDEX 1.12 (< OR =4); POTASSIUM SERUM 4.4 MMOL/L (3.5-5.1); SODIUM LEVEL 133 MMOL/L (136-145); THYROID STIMULATING HORMONE 2.246 uIU/ML (0.55-4.78); TOTAL PROTEIN 7.3 G/DL (5.7-8.2)
[2024-06-11 18:04] LABS: KETONE, URINE AUTO RFX NEGATIVE (NEGATIVE); LEUKOCYTE ESTERASE UR AUTO RFX NEGATIVE (NEGATIVE); MUCUS, URINE RFX SMALL (NEGATIVE); NITRITE, URINE AUTO RFX NEGATIVE (NEGATIVE); RBC, URINE AUTO RFX 7 /HPF (0-3); SQUAM EPITHELIAL CELL UR AURFX 4 /HPF (0-6); WBC, URINE AUTO RFX 9 /HPF (0-3)
[2024-06-11] MEDS ORDERED: CETACAINE SPRAY 5GM TOP ONE (18:05)
[2024-06-11 18:31] LABS: AMPHETAMINES LEVEL URINE NEGATIVE (NEGATIVE); BARBITURATES URINE NEGATIVE (NEGATIVE); CANNABINOIDS URINE NEGATIVE (NEGATIVE); COCAINE METABOLITE URINE NEGATIVE (NEGATIVE); METHADONE URINE NEGATIVE (NEGATIVE); OPIATES URINE NEGATIVE (NEGATIVE); PHENCYCLIDINE URINE NEGATIVE (NEGATIVE)
[2024-06-11 18:33] LABS: BENZODIAZEPINES URINE POSITIVE (NEGATIVE)
[2024-06-11] MEDS: NS 500 ML IV ONE (18:40)
[2024-06-11] MEDS: levETIRAcetam INJection 500 MG in DEXTROSE 5% (D5W) MINI-BAG PLU 100 ML IV ONE (19:40)
[2024-06-11] MEDS ORDERED: LEVOTAB10 PO (21:05)
[2024-06-11] MEDS ORDERED: CELE20TA PO (21:05)
[2024-06-11] MEDS ORDERED: ACETAMINOPHEN 325 MG TAB PO PRN (21:10)
[2024-06-11] MEDS ORDERED: MOM 30ML SUSPENSION UDC PO PRN (21:10)
[2024-06-11] MEDS ORDERED: HOME MED LIST COMPLETE! XX SCH (21:10)
[2024-06-11] MEDS: METOPROLOL TART 25 MG TABLET PO SCH (22:33)
[2024-06-11] MEDS: APIXABAN 5 MG TAB (ELIQUIS) PO SCH (22:33)
[2024-06-12 06:38] LABS: MEAN CORPUSCULAR HEMOGLOBIN 32.9 pg (27.0-33.0); MEAN CORPUSCULAR HGB CONC 33.2 g/dl (32.0-36.5); MEAN CORPUSCULAR VOLUME 99.2 fl (80.0-96.0); PLATELET COUNT, AUTOMATED 308 10^3/uL (150-450); WHITE BLOOD COUNT 7.2 10^3/uL (4.0-10.0)
[2024-06-12 06:47] LABS: HEMATOCRIT 37.7 % (36.0-47.0); HEMOGLOBIN 12.5 g/dl (12.0-15.5)
[2024-06-12 06:58] LABS: ALKALINE PHOSPHATASE 60 U/L (35-104); ALT/SGPT 73 U/L (7.0-40); AST/SGOT 55 U/L (<34); BILIRUBIN,TOTAL 0.6 MG/DL (0.3-1.2); BLOOD UREA NITROGEN 15 MG/DL (9-23); CALCIUM LEVEL 8.9 MG/DL (8.3-10.6); CARBON DIOXIDE LEVEL 30 MMOL/L (20-31); CHLORIDE LEVEL 100 MMOL/L (98-107); CREATININE FOR GFR 0.56 MG/DL (0.55-1.30); GLOMERULAR FILTRATION RATE > 60.0 (>45); GLUCOSE, FASTING 110 MG/DL (74-106); POTASSIUM SERUM 3.6 MMOL/L (3.5-5.1); SODIUM LEVEL 137 MMOL/L (136-145); TOTAL PROTEIN 6.5 G/DL (5.7-8.2)
[2024-06-12] MEDS: levETIRAcetam INJection 500 MG in IV 1 EA IV SCH (08:17)
[2024-06-12] MEDS: CitaloPRAM (CeleXA) 20 MG TAB PO SCH (08:18)
[2024-06-12] MEDS: DOCUSATE SODIUM 100MG CAPSULE PO SCH (08:18)
[2024-06-12] MEDS: LOSARTAN 25 MG TAB PO SCH (08:19)
[2024-06-13] MEDS ORDERED: KEPP1TAB PO (08:28)
[2024-06-13] MEDS: PANTOPRAZOLE 40MG TAB (PROTONIX) PO SCH (08:36)
[2024-06-13 08:38] VITALS: BP 190/88
[2024-06-13] MEDS: levETIRAcetam 250MG TABLET (KEPPRA) PO SCH (08:38)
[2024-06-13 08:46] LABS: ALBUMIN 2.9 G/DL (3.2-5.2); ALKALINE PHOSPHATASE 59 U/L (35-104); ALT/SGPT 69 U/L (7.0-40); AST/SGOT 54 U/L (<34); BILIRUBIN,TOTAL 0.6 MG/DL (0.3-1.2); BLOOD UREA NITROGEN 13 MG/DL (9-23); CALCIUM LEVEL 8.9 MG/DL (8.3-10.6); CARBON DIOXIDE LEVEL 31 MMOL/L (20-31); CHLORIDE LEVEL 103 MMOL/L (98-107); CREATININE FOR GFR 0.61 MG/DL (0.55-1.30); GLOMERULAR FILTRATION RATE > 60.0 (>45); GLUCOSE, FASTING 114 MG/DL (74-106); MAGNESIUM LEVEL 1.6 MG/DL (1.8-2.4); POTASSIUM SERUM 3.7 MMOL/L (3.5-5.1); SODIUM LEVEL 139 MMOL/L (136-145); TOTAL PROTEIN 6.4 G/DL (5.7-8.2)
[2024-06-13 08:52] LABS: MEAN CORPUSCULAR HEMOGLOBIN 33.6 pg (27.0-33.0); MEAN CORPUSCULAR HGB CONC 33.3 g/dl (32.0-36.5); MEAN CORPUSCULAR VOLUME 100.8 fl (80.0-96.0); PLATELET COUNT, AUTOMATED 282 10^3/uL (150-450); RED BLOOD COUNT 3.57 10^6/uL (4.00-5.40); WHITE BLOOD COUNT 5.8 10^3/uL (4.0-10.0)
[2024-06-13 10:27] VITALS: BP 119/69; TEMP 96.8; O2SAT 97
== END 2024-06-13 20:29 | disposition home or self-care (01) | DRG 101 ==
LOC: EDBD 15:05 → M ED 15:05 → M ED INP 21:09
PROVIDERS: ADMIT Family Medicine; ATTEND Internal Medicine
DX: G40.909 Epilepsy, unspecified, not intractable, without status epilepticus (principal); G37.9 Demyelinating disease of central nervous system, unspecified; I48.0 Paroxysmal atrial fibrillation; R13.10 Dysphagia, unspecified; K22.2 Esophageal obstruction; I10 Essential (primary) hypertension; E66.9 Obesity, unspecified; K21.9 Gastro-esophageal reflux disease without esophagitis; K44.9 Diaphragmatic hernia without obstruction or gangrene; E04.9 Nontoxic goiter, unspecified; K57.90 Diverticulosis of intestine, part unspecified, without perforation or abscess without bleeding; F41.9 Anxiety disorder, unspecified; F32.A Depression, unspecified; E55.9 Vitamin D deficiency, unspecified; N39.3 Stress incontinence (female) (male); M79.89 Other specified soft tissue disorders; Z79.01 Long term (current) use of anticoagulants; Z79.899 Other long term (current) drug therapy; Z68.37 Body mass index [BMI] 37.0-37.9, adult

== ENCOUNTER → 2024-07-06 | Outpatient (REF) | payer MEDICARE ==
[~2024-07-06] MED LIST changes: +CELE20TA PO; +KEPP1TAB PO; +LEVOTAB10 PO
[2024-07-06 18:32] LABS: APPEARANCE, URINE CLOUDY (CLEAR); BACTERIA, URINE AUTO 3+ (NEGATIVE); BILIRUBIN, URINE AUTO NEGATIVE (NEGATIVE); BLOOD, URINE BLOOD 2+ (NEGATIVE); COLOR, URINE YELLOW (YELLOW); GLUCOSE, URINE (UA) AUTO NEGATIVE (NEGATIVE); KETONE, URINE AUTO NEGATIVE (NEGATIVE); LEUKOCYTE ESTERASE, URINE AUTO 3+ (NEGATIVE); NITRITE, URINE AUTO NEGATIVE (NEGATIVE); PROTEIN, URINE AUTO NEGATIVE (NEGATIVE); RBC, URINE AUTO 31 /HPF (0-3); SPECIFIC GRAVITY URINE AUTO 1.019 (1.002-1.035); SQUAMOUS EPITHELIAL CELL UR AU 17 /HPF (0-6); WBC, URINE AUTO 140 /HPF (0-3)
== END ==
LOC: M SMT 17:10
PROVIDERS: ATTEND Nurse Practitioner Family
DX: N39.0 Urinary tract infection, site not specified (principal)

== ENCOUNTER → 2024-07-06 | Outpatient (CLI) | payer MEDICARE | LOC: M PLAIMG 14:49 | PROVIDERS: ATTEND Nurse Practitioner Family | DX: N20.0 Calculus of kidney (principal) ==

== ENCOUNTER → 2024-09-29 | Outpatient (REF) | payer MEDICARE, MEDICAID ==
[2024-09-29 16:05] LABS: APPEARANCE, URINE CLOUDY (CLEAR); BACTERIA, URINE AUTO 3+ (NEGATIVE); BILIRUBIN, URINE AUTO NEGATIVE (NEGATIVE); BLOOD, URINE BLOOD 1+ (NEGATIVE); GLUCOSE, URINE (UA) AUTO NEGATIVE (NEGATIVE); KETONE, URINE AUTO NEGATIVE (NEGATIVE); LEUKOCYTE ESTERASE, URINE AUTO 3+ (NEGATIVE); MUCUS, URINE SMALL (NEGATIVE); NITRITE, URINE AUTO POSITIVE (NEGATIVE); PROTEIN, URINE AUTO NEGATIVE (NEGATIVE); RBC, URINE AUTO 5 /HPF (0-3); SPECIFIC GRAVITY URINE AUTO 1.011 (1.002-1.035); SQUAMOUS EPITHELIAL CELL UR AU 25 /HPF (0-6); UROBILINOGEN, URINE AUTO 4.0 mg/dL (0.0-2.0); WBC, URINE AUTO 85 /HPF (0-3)
== END ==
LOC: M SMT 15:11
PROVIDERS: ATTEND Nurse Practitioner Family
DX: N39.0 Urinary tract infection, site not specified (principal)

== ENCOUNTER → 2024-10-04 | Outpatient (CLI) | payer MEDICARE, MEDICAID ==
[2024-10-04 09:47] VITALS: TEMP 98
[2024-10-04 10:41] VITALS: BP 130/86; O2SAT 99
== END ==
LOC: M WHCPRO 09:47
PROVIDERS: ATTEND Surgery
DX: C50.412 Malignant neoplasm of upper-outer quadrant of left female breast (principal)
CPT/HCPCS: 19285; 77065; A4648

== ENCOUNTER → 2024-10-11 | Outpatient (CLI) | payer MEDICARE, MEDICAID ==
[~2024-10-11] MED LIST changes: +FURO20TA2 PO; +METH-855 PO; +NITR100C2 PO; +VIBE75TA PO
[2024-10-11 11:11] LABS: BASO # 0.1 10^3/uL (0.0-0.2); BASO % 0.7 % (0.0-1.0); EOS # 0.5 10^3/uL (0.0-0.5); EOS % 7.3 % (0.0-3.0); LYMPH # 1.6 10^3/uL (1.5-5.0); LYMPH % 21.4 % (24.0-44.0); MONO # 0.5 10^3/uL (0.0-0.8); MONO % 6.4 % (2.0-8.0); NEUTROPHILS # 4.6 10^3/uL (1.5-8.5); NEUTROPHILS % 63.9 % (36.0-66.0); PLATELET COUNT, AUTOMATED 376 10^3/uL (150-450)
[2024-10-11 11:32] LABS: ALT/SGPT 65.0 U/L (7.0-40); AST/SGOT 67.0 U/L (<34); CALCIUM LEVEL 9.5 MG/DL (8.3-10.6); CARBON DIOXIDE LEVEL 29.0 MMOL/L (20-31); CHLORIDE LEVEL 96.0 MMOL/L (98-107); CREATININE FOR GFR 0.81 MG/DL (0.55-1.30); GLOMERULAR FILTRATION RATE 79.5 (>45); POTASSIUM SERUM 4.3 MMOL/L (3.5-5.1); SODIUM LEVEL 138.0 MMOL/L (136-145)
== END ==
LOC: M PLALAB 09:34
PROVIDERS: ATTEND Student in an Organized Health Care Education/Training Program
DX: Z01.818 Encounter for other preprocedural examination (principal)

== ENCOUNTER → 2024-10-18 | Outpatient (CLI) | payer MEDICARE, MEDICAID | LOC: M ONCR 10:14 | PROVIDERS: ATTEND General Practice | DX: C50.412 Malignant neoplasm of upper-outer quadrant of left female breast (principal); Z17.0 Estrogen receptor positive status [ER+]; Z17.21 Progesterone receptor positive status; Z17.32 Human epidermal growth factor receptor 2 negative status; Z80.1 Family history of malignant neoplasm of trachea, bronchus and lung; Z80.3 Family history of malignant neoplasm of breast; Z79.01 Long term (current) use of anticoagulants; Z79.899 Other long term (current) drug therapy ==

== ENCOUNTER → 2024-10-20 | Outpatient (CLI) | payer MEDICARE, MEDICAID | LOC: M PLAIMG 14:34 | PROVIDERS: ATTEND Student in an Organized Health Care Education/Training Program | DX: Z01.818 Encounter for other preprocedural examination (principal) ==

== ENCOUNTER 2024-10-26 08:13 | Observation (INO) | payer MEDICARE, MEDICAID ==
[~2024-10-26] VITALS: Ht 165.1 cm; Wt 107.7 kg
[2024-10-26] MEDS ORDERED: LIDOCAINE 1% SDV 5 ML VIAL SC PRN (08:20)
[2024-10-26] MEDS ORDERED: LR 1,000 ML IV SCH (08:20)
[2024-10-26] MEDS ORDERED: ACETAMINOPHEN 1000MG/100ML IV BAG As Ordered ONE (12:43)
[2024-10-26] MEDS ORDERED: MIDAZOLAM INJ 2 MG/2 ML VIAL As Ordered ONE (12:43)
[2024-10-26] MEDS ORDERED: dexAMETHasone 4 MG/ML 1 ML VIAL As Ordered ONE (12:43)
[2024-10-26] MEDS ORDERED: KETOROLAC 30 MG/ML 1 ML VIAL As Ordered ONE (12:43)
[2024-10-26] MEDS ORDERED: LIDOCAINE 2% 100 MG/5 ML SDV (FOR ANES.) As Ordered ONE (12:43)
[2024-10-26] MEDS ORDERED: ONDANSETRON 4MG 2ML VIAL As Ordered ONE (12:43)
[2024-10-26] MEDS: ceFAZolin SOD 2 GM IV ONCE IV ONE (13:44)
[2024-10-26] MEDS ORDERED: GLYCOPYRROLATE INJ 0.2 MG/ML 2 ML VIAL As Ordered ONE (14:00)
[2024-10-26] MEDS ORDERED: CALCIUM CHLORIDE 10% 1 GM/10 ML SYR As Ordered ONE (14:00)
[2024-10-26] MEDS ORDERED: dilTIAZem 25 MG/5 ML VIAL As Ordered ONE (14:21)
[2024-10-26] MEDS ORDERED: ONDANSETRON 4MG 2ML VIAL IV PRN (14:25)
[2024-10-26] MEDS ORDERED: ESMOLOL 100 MG/10 ML VIAL As Ordered ONE (14:36)
[2024-10-26] MEDS: METOPROLOL 5 MG/5 ML VIAL IV PRN (15:14)
[2024-10-26] MEDS ORDERED: ACETAMINOPHEN 325 MG TAB PO PRN (15:30)
[2024-10-26] MEDS: METOPROLOL 5 MG/5 ML VIAL IV SCH (16:00)
[2024-10-26 16:08] LABS: BASO # 0.0 10^3/uL (0.0-0.2); BASO % 0.2 % (0.0-1.0); EOS # 0.2 10^3/uL (0.0-0.5); EOS % 2.0 % (0.0-3.0); LYMPH # 0.9 10^3/uL (1.5-5.0); LYMPH % 10.2 % (24.0-44.0); MONO # 0.2 10^3/uL (0.0-0.8); MONO % 2.3 % (2.0-8.0); NEUTROPHILS # 7.4 10^3/uL (1.5-8.5); NEUTROPHILS % 85.1 % (36.0-66.0); PLATELET COUNT, AUTOMATED 271 10^3/uL (150-450)
[2024-10-26 16:19] VITALS: BP 136/83
[2024-10-26] MEDS: METOPROLOL TART 25 MG TABLET PO SCH (16:19)
[2024-10-26 16:20] LABS: INR 1.04
[2024-10-26 16:43] VITALS: BP 131/61; TEMP 98; O2SAT 95
[2024-10-26 16:58] LABS: ALT/SGPT 36 U/L (7.0-40); AST/SGOT 36 U/L (<34); CALCIUM LEVEL 9.9 MG/DL (8.3-10.6); CARBON DIOXIDE LEVEL 30 MMOL/L (20-31); CHLORIDE LEVEL 100 MMOL/L (98-107); CREATININE FOR GFR 0.63 MG/DL (0.55-1.30); GLOMERULAR FILTRATION RATE > 90.0 (>45); POTASSIUM SERUM 4.4 MMOL/L (3.5-5.1); SODIUM LEVEL 139 MMOL/L (136-145)
[2024-10-26 19:52] VITALS: BP 140/65; TEMP 98; O2SAT 96
[2024-10-26 20:00] VITALS: BP 140/65; TEMP 98; O2SAT 96
[2024-10-26] MEDS: DOCUSATE SODIUM 100 MG CAPSULE PO SCH (20:12)
[2024-10-26] MEDS: APIXABAN 5 MG TAB PO SCH (20:13)
[2024-10-26 23:29] VITALS: BP 149/66; TEMP 97.2; O2SAT 96
[2024-10-26] MEDS: RAMELTEON 8 MG TAB PO PRN (23:31)
[2024-10-27] VITALS: BP 149/66; TEMP 97.2; O2SAT 96
[2024-10-27 03:51] VITALS: BP 135/61; TEMP 97.1; O2SAT 97
[2024-10-27 04:00] VITALS: BP 135/61; TEMP 97.1; O2SAT 97
[2024-10-27 05:23] LABS: CALCIUM LEVEL 8.9 MG/DL (8.3-10.6); CARBON DIOXIDE LEVEL 26 MMOL/L (20-31); CHLORIDE LEVEL 100 MMOL/L (98-107); CREATININE FOR GFR 0.61 MG/DL (0.55-1.30); GLOMERULAR FILTRATION RATE > 90.0 (>45); POTASSIUM SERUM 4.9 MMOL/L (3.5-5.1); SODIUM LEVEL 137 MMOL/L (136-145)
[2024-10-27 05:29] LABS: BASO # 0.0 10^3/uL (0.0-0.2); BASO % 0.1 % (0.0-1.0); EOS # 0.0 10^3/uL (0.0-0.5); EOS % 0.0 % (0.0-3.0); LYMPH # 0.9 10^3/uL (1.5-5.0); LYMPH % 12.4 % (24.0-44.0); MONO # 0.2 10^3/uL (0.0-0.8); MONO % 2.4 % (2.0-8.0); NEUTROPHILS # 6.4 10^3/uL (1.5-8.5); NEUTROPHILS % 84.6 % (36.0-66.0); PLATELET COUNT, AUTOMATED 295 10^3/uL (150-450)
[2024-10-27 07:58] VITALS: BP 146/60; TEMP 97.8; O2SAT 99
[2024-10-27] MEDS: LR 1,000 ML IV SCH (08:20)
== END 2024-10-27 10:30 | disposition home or self-care (01) ==
LOC: M SDC 08:13 → M ED INP 15:28 → INTOOBSV 15:28 → M PCU 16:39
PROVIDERS: ADMIT Internal Medicine Nephrology; ATTEND Internal Medicine Nephrology
DX: I48.0 Paroxysmal atrial fibrillation (principal); C50.412 Malignant neoplasm of upper-outer quadrant of left female breast; Z53.09 Procedure and treatment not carried out because of other contraindication; I10 Essential (primary) hypertension; K57.90 Diverticulosis of intestine, part unspecified, without perforation or abscess without bleeding; K21.9 Gastro-esophageal reflux disease without esophagitis; E04.0 Nontoxic diffuse goiter; E55.9 Vitamin D deficiency, unspecified; G40.909 Epilepsy, unspecified, not intractable, without status epilepticus; Z86.73 Personal history of transient ischemic attack (TIA), and cerebral infarction without residual deficits; R32 Unspecified urinary incontinence; E66.01 Morbid (severe) obesity due to excess calories; E78.5 Hyperlipidemia, unspecified; F41.9 Anxiety disorder, unspecified; F32.A Depression, unspecified; L71.9 Rosacea, unspecified; Z79.01 Long term (current) use of anticoagulants; Z79.899 Other long term (current) drug therapy
CPT/HCPCS: 19301; 36415; 38525; 80048; 80053; 85025; 85610; 85730; A9520; G0378; J0131; J0616; J0618; J0690; J1100; J1596; J1805; J1885; J2250; J2405; J3010

== ENCOUNTER → 2024-11-02 | Outpatient (CLI) | payer MEDICARE, MEDICAID ==
[~2024-11-02] MED LIST changes: +METH-1100 PO; -METH-855 PO
== END ==
LOC: M CARPUL 10:02
PROVIDERS: ATTEND Internal Medicine Cardiovascular Disease
DX: I48.0 Paroxysmal atrial fibrillation (principal); R06.02 Shortness of breath; R94.31 Abnormal electrocardiogram [ECG] [EKG]

== ENCOUNTER → 2024-11-14 | Outpatient (CLI) | payer MEDICARE, MEDICAID ==
[~2024-11-14] MED LIST changes: -METH-1100 PO; +METH-855 PO
== END ==
LOC: M PLAIMG 14:34
PROVIDERS: ATTEND Internal Medicine Cardiovascular Disease
DX: I48.0 Paroxysmal atrial fibrillation (principal); I51.7 Cardiomegaly; R60.0 Localized edema

== ENCOUNTER → 2024-12-01 | Outpatient (CLI) | payer MEDICARE, MEDICAID ==
[~2024-12-01] MED LIST changes: +FARX1TAB3 PO; +LEVE500T5 PO; +METH-1100 PO; -METH-855 PO; +METO50TA7 PO; +OXYC5CAP56 PO
[2024-12-01 13:56] LABS: ALT/SGPT 34.0 U/L (7.0-40); AST/SGOT 29.0 U/L (<34); CALCIUM LEVEL 9.2 MG/DL (8.3-10.6); CARBON DIOXIDE LEVEL 32.0 MMOL/L (20-31); CHLORIDE LEVEL 101.0 MMOL/L (98-107); CHOLESTEROL LEVEL 144.0 MG/DL (<200); CHOLESTEROL RISK RATIO 2.24 (<5); CREATININE FOR GFR 0.86 MG/DL (0.55-1.30); GLOMERULAR FILTRATION RATE 74.0 (>45); LDL CHOLESTEROL 43.3 MG/DL (<100); MAGNESIUM LEVEL 1.8 MG/DL (1.8-2.4); NON-HDL-C 79.9 MG/DL; POTASSIUM SERUM 4.6 MMOL/L (3.5-5.1); SODIUM LEVEL 139.0 MMOL/L (136-145); TRIGLYCERIDES LEVEL 183.0 MG/DL (<150)
[2024-12-01 13:58] LABS: VITAMIN B12 LEVEL 688.0 PG/ML (211-911)
[2024-12-01 13:59] LABS: BASO # 0.0 10^3/uL (0.0-0.2); BASO % 0.4 % (0.0-1.0); EOS # 0.3 10^3/uL (0.0-0.5); EOS % 4.5 % (0.0-3.0); LYMPH # 1.7 10^3/uL (1.5-5.0); LYMPH % 24.4 % (24.0-44.0); MONO # 0.6 10^3/uL (0.0-0.8); MONO % 8.9 % (2.0-8.0); NEUTROPHILS # 4.2 10^3/uL (1.5-8.5); NEUTROPHILS % 61.5 % (36.0-66.0); PLATELET COUNT, AUTOMATED 287 10^3/uL (150-450)
[2024-12-03 02:32] LABS: PROTEIN, TOTAL SO 7.1 g/dL (6.1-8.1)
[2024-12-05 08:23] LABS: ALBUMIN SO 3.6 g/dL (3.8-4.8); ALPHA 1 GLOBULINS SO 0.3 g/dL (0.2-0.3); ALPHA 2 GLOBULINS SO 0.9 g/dL (0.5-0.9); BETA 2 GLOBULIN SO 0.5 g/dL (0.2-0.5); BETA GLOBULIN SO 0.5 g/dL (0.4-0.6); GAMMA GLOBULINS SO 1.3 g/dL (0.8-1.7)
== END ==
LOC: M PLALAB 08:48
PROVIDERS: ATTEND Nurse Practitioner Family
DX: D75.89 Other specified diseases of blood and blood-forming organs (principal); I10 Essential (primary) hypertension

== ENCOUNTER 2024-12-14 09:45 | Day surgery (SDC) | payer MEDICARE, MEDICAID ==
[~2024-12-14] VITALS: Ht 170.2 cm; Wt 106.8 kg
[~2024-12-14 09:45] MED LIST changes: -OXYC5CAP56 PO
[2024-12-14] MEDS ORDERED: GLYCOPYRROLATE INJ 0.2 MG/ML 2 ML VIAL As Ordered ONE (09:50)
[2024-12-14] MEDS ORDERED: ONDANSETRON 4MG/2ML VIAL As Ordered ONE (09:50)
[2024-12-14] MEDS ORDERED: LIDOCAINE 2% 100 MG/5 ML SDV (FOR ANES.) As Ordered ONE (09:50)
[2024-12-14] MEDS ORDERED: ROCURONIUM BROMIDE 50MG/5ML VIAL As Ordered ONE (09:50)
[2024-12-14] MEDS ORDERED: KETOROLAC 30 MG/ML 1 ML VIAL As Ordered ONE (09:51)
[2024-12-14] MEDS ORDERED: dexAMETHasone 4 MG/ML 1 ML VIAL As Ordered ONE (09:51)
[2024-12-14] MEDS ORDERED: SUGAMMADEX SODIUM 200 MG/2 ML VIAL As Ordered ONE (09:54)
[2024-12-14] MEDS ORDERED: MIDAZOLAM INJ 2 MG/2 ML VIAL As Ordered ONE (09:59)
[2024-12-14] MEDS: LR 1,000 ML IV SCH (10:30)
[2024-12-14] MEDS ORDERED: ETOMIDATE 20 MG/10 ML VIAL As Ordered ONE (11:57)
[2024-12-14] MEDS ORDERED: ESMOLOL 100 MG/10 ML VIAL As Ordered ONE (12:22)
[2024-12-14] MEDS ORDERED: hydrALAZINE 20 MG/ML 1 ML VIAL As Ordered ONE (12:51)
[2024-12-14] MEDS ORDERED: ATROPINE SULF 0.4 MG/ML 1 ML VIAL As Ordered ONE (12:51)
[2024-12-14] MEDS: ceFAZolin SOD 2 GM IV ONCE IV ONE (12:57)
[2024-12-14] MEDS ORDERED: ACETAMINOPHEN 1000MG/100ML IV BAG As Ordered ONE (13:19)
[2024-12-14] MEDS ORDERED: HYDROMORPHONE HCL 0.5 MG/0.5 ML SYRINGE IV PRN (15:00)
[2024-12-14] MEDS ORDERED: LR 1,000 ML IV SCH (15:00)
[2024-12-14] MEDS ORDERED: ONDANSETRON 4MG/2ML VIAL IV PRN (15:00)
[2024-12-14] MEDS ORDERED: OXYC5CAP56 PO (15:09)
[2024-12-14 16:05] VITALS: BP 126/58; TEMP 97.7; O2SAT 97
== END 2024-12-14 16:27 | disposition home or self-care (01) ==
LOC: M SDC 09:45
PROVIDERS: ATTEND Surgery
DX: C50.412 Malignant neoplasm of upper-outer quadrant of left female breast (principal); I48.0 Paroxysmal atrial fibrillation; I10 Essential (primary) hypertension; Z17.32 Human epidermal growth factor receptor 2 negative status; I25.10 Atherosclerotic heart disease of native coronary artery without angina pectoris; N32.81 Overactive bladder; E78.00 Pure hypercholesterolemia, unspecified; Z79.01 Long term (current) use of anticoagulants; Z79.899 Other long term (current) drug therapy; E66.9 Obesity, unspecified; Z86.73 Personal history of transient ischemic attack (TIA), and cerebral infarction without residual deficits; Z68.36 Body mass index [BMI] 36.0-36.9, adult; Z87.891 Personal history of nicotine dependence; Z80.3 Family history of malignant neoplasm of breast; Z80.41 Family history of malignant neoplasm of ovary; Z80.49 Family history of malignant neoplasm of other genital organs; Z80.8 Family history of malignant neoplasm of other organs or systems; Z80.7 Family history of other malignant neoplasms of lymphoid, hematopoietic and related tissues
CPT/HCPCS: 19301; 38525; 38792; 38900; 88307; A9520; G0463; J0131; J0360; J0461; J0688; J1100; J1596; J1805; J1885; J2250; J2405; J2765; J3010

== ENCOUNTER → 2025-01-03 | Outpatient (REF) | payer MEDICARE, MEDICAID ==
[~2025-01-03] MED LIST changes: +OXYC5CAP56 PO
== END ==
LOC: M LAB REF 15:10
PROVIDERS: ATTEND Surgery
DX: C50.412 Malignant neoplasm of upper-outer quadrant of left female breast (principal); L76.34 Postprocedural seroma of skin and subcutaneous tissue following other procedure

== ENCOUNTER 2025-01-09 11:01 | Outpatient (RCR) | payer MEDICARE, MEDICAID | END 2025-01-12 | LOC: M ONCR 11:01 | PROVIDERS: ATTEND General Practice | DX: Z51.0 Encounter for antineoplastic radiation therapy (principal); C50.412 Malignant neoplasm of upper-outer quadrant of left female breast; Z53.8 Procedure and treatment not carried out for other reasons ==